=== PATIENT | female | born 1980 | race Caucasian/White ===

== ENCOUNTER 2019-11-07 07:26 | Outpatient (CLI) | payer OTHER, SELFPAY ==
[2019-11-07 09:02] LABS: Cortisol Baseline 7.91 ug/dL
== END 2019-11-07 07:27 | disposition home or self-care (01) ==
PROVIDERS: Visit Provider Internal Medicine Endocrinology, Diabetes & Metabolism
DX: R94.7 Abnormal results of other endocrine function studies (principal)
CPT/HCPCS: 36415; 82533; 96372; J0834

== ENCOUNTER 2020-02-02 10:49 | Outpatient (CLI) | payer OTHER, SELFPAY ==
--- NOTE | ~2020-02-02 | XR_ITS ---
EXAMINATION: XR chest 2V EXAM DATE: 02/02/2020 11:06 INDICATION: Cough, wheezing, shortness of breath. TECHNIQUE: Frontal and lateral projections of the chest obtained and reviewed. Comparison is made to prior examination from 10/27/2007. FINDINGS: The lungs are clear. There are no pleural effusions. The cardiomediastinal silhouette is within normal limits. There is no pneumothorax suspected. The bones and soft tissues are unremarkab le. IMPRESSION: Normal chest x-ray exam. Reviewed, dictated and finalized at location A. IMPRESSION: Normal chest x-ray exam.
== END 2020-02-02 10:50 | disposition home or self-care (01) ==
LOC: ANHIMG 10:54
PROVIDERS: PCP Physician Assistant; Visit Provider Physician Assistant
DX: R05 Cough (principal)
CPT/HCPCS: 71046

== ENCOUNTER 2020-06-28 06:50 | Outpatient (NON) | payer OTHER, SELFPAY ==
[2020-06-28 21:44] LABS: SARS-CoV-2 RNA PCR Negative
== END 2020-06-28 06:51 ==
LOC: ANHCOVIDDT 06:52
PROVIDERS: PCP Physician Assistant; Visit Provider Physician Assistant
DX: R53.83 Other fatigue (principal); Z20.822 Contact with and (suspected) exposure to COVID-19
CPT/HCPCS: C9803; U0003; U0005

== ENCOUNTER → 2020-06-29 12:34 | Outpatient (CLI) | payer OTHER, SELFPAY ==
--- NOTE | ~2020-06-29 | MR_ITS ---
EXAMINATION: MR shoulder LT w con DATE: 06/29/2020 14:19 INDICATION: Chronic left shoulder pain TECHNIQUE: Magnetic resonance imaging (MRI) of the left shoulder was performed following intra-artic ular gadolinium contrast injection and without intravenous contrast. Details of the glenohumeral join t injection have been dictated separately. Sequences included axial T2-weighted FS FSE, axial T1-andrés ghted FS FSE, coronal oblique T1-weighted FS FSE, coronal oblique T2-weighted FSE, sagittal T2-weight ed FS FSE, sagittal T1-weighted FSE, and ABER (abduction external rotation) T1-weighted FS FSE. COMPARISON: None. FINDINGS: Coracoacromial arch: The acromion undersurface is curved in morphology (type II). The coracoacromial ligament is normal. Acromioclavicular joint is normal. Rotator cuff: Mild supraspinatus and infraspinatus tendinopathy without discrete tear. The teres minor and subscapu johnny tendons are normal. Normal rotator cuff muscle bulk and signal. Biceps tendon, glenoid labrum and glenohumeral cartilage: Long head of the biceps tendon is normal. There is a small partial-thickness tear at the base of the 12:00-10:00 position of the posterior superior glenoid labrum. There is partial thickness cartilage l oss with smooth chondral surface at the posterior superior glenoid. Humeral head cartilage appears no rmal. Bones and other: Normal marrow signal with no edema, fracture or abnormal marrow replacing process. No abnormal fluid signal in the subacromial/subdeltoid bursa to suggest bursitis. Small amount of nonenhancing fluid i n the deltoid muscle anterior to the rotator cuff interval likely related to subcutaneous lidocaine i njection. There is an extra-articular extravasation of contrast at the axillary recess which is consi stent on the initial arthrographic images with adequate distention of the axillary recess. The extrav asation seen only posteriorly with an intact anterior inferior glenohumeral ligament. The posterior i nferior glenohumeral ligament and capsule are seen is thin curvilinear lines with no discrete defect in these findings would all be most consistent with iatrogenic extravasation rather than a glenohumer al ligament tear. IMPRESSION: 1. Mild supraspinatus and infraspinatus tendinopathy without discrete tear. 2. Partial-thickness SLAP tear at the base of the posterosuperior glenoid labrum. Reviewed, dictated and finalized at location A. D LIFE THERAPIST IMPRESSION: 1. Mild supraspinatus and infraspinatus tendinopathy without discrete tear. 2. Partial-thickness SLAP tear at the base of the posterosuperior glenoid labru m.
--- NOTE | ~2020-06-29 | XR_ITS ---
EXAMINATION: XR fl inj shoulder LT - MR/CT DATE: 06/29/2020 13:57 INDICATION: Chronic left shoulder pain. No surgery or dislocation. TECHNIQUE: A time-out was performed to verify the patient's name, date of , and procedure to b e performed. The procedure including the risks, benefits, and alternatives was discussed with the pat ient. Risks discussed included bleeding and infection. The patient understood the risks and agreed to proceed. The skin overlying the left glenohumeral joint was prepped and draped in usual sterile fash ion. Anesthetic was administered with 1% lidocaine subcutaneously. A 22 G needle was advanced under fluoroscopic guidance into the joint. Subsequently, injectate consisting of 12 mL of 1:200 Multihan ce, 1:4 1% lidocaine, and 1:4 Omnipaque 240 was instilled. The needle was removed and the entry site was cleaned and dressed. There were no immediate complications. Fluoroscopy exposure time was 0.0 m inutes. The total number of images was 3. FINDINGS: Real-time fluoroscopy demonstrates the needle and contrast in the left glenohumeral joint. IMPRESSION: 1. Successful left glenohumeral joint injection of contrast for subsequent MR arthrography. Reviewed, dictated and finalized at location B. P MANAGER IMPRESSION: 1. Successful left glenohumeral joint injection of contrast for subsequent MR a rthrography.
== END ==
PROVIDERS: PCP Physician Assistant
DX: S43.432A Superior glenoid labrum lesion of left shoulder, initial encounter (principal); X58.XXXA Exposure to other specified factors, initial encounter
CPT/HCPCS: 23350; 73222; A9577; Q9966

== ENCOUNTER → 2020-12-25 13:42 | Outpatient (CLI) | payer OTHER, SELFPAY ==
--- NOTE | ~2020-12-25 | MM_ITS ---
EXAMINATION: MM scrn laureen implant BI w alejandra HISTORY: Screening mammogram TECHNIQUE: Craniocaudal and mediolateral oblique 3-D tomosynthesis images with implant displacement a nd synthetic 2-D images were generated. Craniocaudal and mediolateral oblique views of the breasts wi thout implant displacement were obtained using full field digital mammography. CAD analysis was submi tted and interpreted. COMPARISON: 05/03/2018 BREAST PARENCHYMAL COMPOSITION: The breasts are heterogenously dense, which may obscure small masses. FINDINGS: There are subpectoral silicone implants. There is no evidence of suspicious mass, calcifica tion, or architectural distortion to suggest malignancy in either breast. There has been no suspiciou s interval change. IMPRESSION: 1. No mammographic evidence of malignancy. 2. Recommend routine screening mammography in one year. BI-RADS Category 1: Negative Reviewed, dictated and finalized at location A.
== END ==
PROVIDERS: PCP Physician Assistant; Visit Provider Physician Assistant
DX: Z12.31 Encounter for screening mammogram for malignant neoplasm of breast (principal)
CPT/HCPCS: 77063; 77067

== ENCOUNTER 2021-05-14 09:44 | Outpatient (CLI) | payer OTHER, SELFPAY | END 2021-05-14 09:45 | disposition home or self-care (01) | LOC: CHSOUTPT 09:46 | PROVIDERS: PCP Physician Assistant; Visit Provider Specialist | DX: D22.72 Melanocytic nevi of left lower limb, including hip (principal) | CPT/HCPCS: 88305; 88342 ==

== ENCOUNTER → 2021-07-17 08:38 | Outpatient (CLI) | payer OTHER, SELFPAY ==
--- NOTE | ~2021-07-17 | MR_ITS ---
EXAMINATION: MR lower leg LT wo/w con DATE: 07/17/2021 09:50 INDICATION: Nodular skin of the lower limb TECHNIQUE: Magnetic resonance imaging (MRI) of the left lower leg was performed without intravenous c ontrast. A marker was placed over the region of concern. Sequences included axial, sagittal and veronica nal T1-weighted FSE, sagittal and coronal fluid sensitive FSE STIR, axial T2-weighted FS FSE, axial T 1-weighted FS FSE and postcontrast axial, sagittal and coronal T1-weighted FS FSE. COMPARISON: None. FINDINGS: There is mild epimysial edema along the caudal aspect of the medial head of the left gastrocnemius mu scle. There is focal mild thickening with increased signal and mild enhancement of the intramuscular portion of the right proximal Achilles tendon consistent with very small partial tear. Otherwise symm etric muscle bulk and signal throughout both calves. Normal bone marrow signal throughout with no idris ctive edema or periostitis, fracture or pathologic marrow replacing process. No abnormal masses or di screte fluid collections identified. No other abnormally enhancing lesions identified. IMPRESSION: 1. Very small partial tear at the myotendinous junction of the proximal Achilles tendon in the distal medial head of the gastrocnemius. Reviewed, dictated and finalized at location A. RVISOR SPRING UP IMPRESSION: 1. Very small partial tear at the myotendinous junction of the proximal John Day s tendon in the distal medial head of the gastrocnemius.
[2021-07-17 09:03] LABS: Estimated Glomerular Filt Rate > 60
== END ==
PROVIDERS: PCP Physician Assistant; Visit Provider Physician Assistant
DX: R22.42 Localized swelling, mass and lump, left lower limb (principal)
CPT/HCPCS: 73720; A9577

== ENCOUNTER 2021-12-06 02:24 | Day surgery (SDC) | payer OTHER, SELFPAY ==
[2021-12-02 11:47] VITALS: BMI 22.8
--- NOTE | 2021-12-02 11:48 | PC.NURSE ---
Report to the Outpatient Waiting Room, entrance under the green pavilion located off [facility], at time _0815_ on date _[id number]_. OR Time: _1015_. - You and your visitor will be asked a series of questions to screen for COVID 19 for your protection. - Only one visitor is allowed at this time. - The patient visitor is requested to leave or wait in car when not with patient. - A mask is required within the hospital. Patients may have clear liquids (water, carbonated beverages, clear teas, apple juice) until 3 hours prior to surgery with a maximum of 20 ounces. - No food from midnight until time of surgery Take the following medications with a SIP of water the morning of surgery: __Bupropion and Levothyroxine Medications to discontinue per physician ____None Date to take last dose Please no make-up, nail luxembourgish, hairspray, perfume, deodorant, or body powder the day of surgery. No jewelry (including any body piercings) or valuables the day of surgery, leave them at home. Please take a shower or bath the night before, or the morning of, surgery with an antibacterial soap. Wear comfortable, loose fitting clothing. - Jewelry must be removed prior to entering the operating room. Rings and piercings that are not removed may be cut off. - The hospital will not accept responsibility for valuables. - Please leave all valuables, including medications, at home the day of surgery. If you are going home after surgery, a licensed double bottom driver must drive you home. - NO public transportation without another adult. - We recommend that an adult stay with you for 24 hours following discharge. - We also recommend that you do not drive, make important decision, drink alcoholic beverages, or take any drugs that were not prescribed by your health care provider for at least 24 hours after your discharge time. Follow any additional instructions given to you from your surgeon. If you or anyone in your household have experienced Covid symptoms in the past week, please notify your surgeon or the nurse liaison at the phone number below for possible testing. Telephone instructions given to ___Patient___and asked if any additional questions and then verbalized understanding. Patient advised to call surgeon office or pre surgery nurse liaison [phone] if any additional questions.
--- NOTE | 2021-12-04 07:12 | PM.IMHP ---
H&P: HPI History of Present Illness Date/Time: 12/04/21 07:12 Chief Complaint: Irregular bleeding with suspected polyp Narrative: Is a 41-year-old female who is admitted for hysteroscopy and dilatation and curettage secondary to bleeding and suspected polyp. The patient's bleeding has been intermenstrual. Ultrasound shows a possible polyp were abnormality in the uterus. Risks and benefits of the procedure reviewed including but not exclusive of , aspiration pneumonia, bleeding, transfusion, perforation injury to bowel, bladder, ureters, or other internal organs with need for open laparotomy. She received the ACOG handout entitled hysteroscopy and dilatation curettage respectively. She had all questions answered and asked to proceed PMF Family History Family History Father Hypertension Other Family history of cardiovascular disease Social History Social History Smoking status: Never smoker Second hand tobacco smoke exposure: No Alcohol intake: current Living arrangements: with family Spiritual care concerns: No Meds Home Medications and Allergies Home Medications Medication Instructions Recorded Confirmed Type bupropion HCl 150 mg 24 hr tablet, 150 mg PO DAILY 12/02/21 12/02/21 History extended release bupropion HCl 300 mg 24 hr tablet, 300 mg PO DAILY 12/02/21 12/02/21 History extended release fluoxetine 10 mg tablet 10 mg PO HS 12/02/21 12/02/21 History fluoxetine 20 mg tablet 20 mg PO HS 12/02/21 12/02/21 History levothyroxine 125 mcg tablet 125 mcg PO DAILY 12/02/21 12/02/21 History (Synthroid) liraglutide (weight loss) 3 mg/0.5 9 mg subcut DAILY 12/02/21 12/02/21 History mL (18 mg/3 mL) subcut pen injector (Saxenda) magnesium 250 mg tablet 250 mg PO DAILY 12/02/21 12/02/21 History progesterone micronized 100 mg 2 cap PO DAILY 12/02/21 12/02/21 History capsule Allergies Allergy/AdvReac Type Severity Reaction Status Date / Time No Known Allergies Allergy Verified 12/02/21 11:35 Assessment and Plan Assessment and plan (1) Excessive vaginal bleeding: Code(s): N93.9 - Abnormal uterine and vaginal bleeding, unspecified Status: Acute Plan Hysteroscopy/dilatation curettage/probable polypectomy
--- NOTE | 2021-12-06 06:43 | WPDHPUPDATE1 ---
History and Physical Update Update Date/Time: 12/06/21 06:43 History and Physical has been reviewed, including an updated exam of the patient. There are NO changes in the patient's condition. Risks, benefits, and alternatives have been discussed and questions answered. Patient agrees to proceed with procedure.
[2021-12-06] MEDS: ACETAMINOPHEN 500 MG TABLET 1000 MG PO (08:42)
--- NOTE | 2021-12-06 09:11 | P.PNAN_ITS ---
Anes - Initial Pre Proc Eval Procedure: Operation Date: 12/06/21 10:15 Proposed Procedures p Hysteroscopy, Dilation and Curettage with Polypectomy - William Good MD Date/Time: 12/06/21 09:11 Surgeon: William Good MD Pre Op Diagnosis: uterine polyp, irreg bleeding Patient Data Age: 41 Gender: F Height: 1.73 m Weight: 67.4 kg Allergies Allergy/AdvReac Type Severity Reaction Status Date / Time No Known Allergies Allergy Verified 12/06/21 08:32 Home Medications Medication Instructions Recorded Confirmed Type bupropion HCl 150 mg 24 hr tablet, 150 mg PO DAILY 12/02/21 12/06/21 History extended release bupropion HCl 300 mg 24 hr tablet, 300 mg PO DAILY 12/02/21 12/06/21 History extended release fluoxetine 10 mg tablet 10 mg PO HS 12/02/21 12/06/21 History fluoxetine 20 mg tablet 20 mg PO HS 12/02/21 12/06/21 History levothyroxine 125 mcg tablet 125 mcg PO DAILY 12/02/21 12/06/21 History (Synthroid) liraglutide (weight loss) 3 mg/0.5 9 mg subcut DAILY 12/02/21 12/06/21 History mL (18 mg/3 mL) subcut pen injector (Saxenda) magnesium 250 mg tablet 250 mg PO DAILY 12/02/21 12/06/21 History progesterone micronized 100 mg 2 cap PO DAILY 12/02/21 12/02/21 History capsule hydrocodone 5 mg-acetaminophen 325 1 tablet PO Q4H PRN pain #20 tabs 12/06/21 Rx mg tablet spironolactone 50 mg tablet 50 mg PO HS 12/06/21 12/06/21 History Patient hx anesthesia problems: none Family hx anesthesia problems: none Results Review: All pre-operative results and documents have been reviewed as part of the pre-operative evaluation. [facility] Past Medical History Medical History (Updated 12/06/21 @ 09:14 by William Chance MD) Anxiety Surgical History Surgical History (Updated 12/06/21 @ 09:14 by William Chance MD) H/O thyroidectomy History of section History of shoulder surgery Family History Family History Father Hypertension Other Family history of cardiovascular disease Social History Social History Smoking status: Never smoker Second hand tobacco smoke exposure: No Alcohol intake: current Living arrangements: with family Spiritual care concerns: No Anes - Eval Final PreProcedure Day of Procedure 12/06/21 09:11 Patient weight: normal Heart: regular rate and rhythm Lungs: clear to auscultation Airway: Mallampati scale class 1 Neurological: alert and oriented Last oral intake: >/= 8 hours ASA classification: II Emergent: no Anesthetic plan: proceed Anesthesia type and monitoring: general GIVS and standard monitoring Results Review: All pre-operative results and documents have been reviewed as part of the pre- operative evaluation. Informed Consent: The patient's anesthetic plan and its attendant risks and benefits were discussed with the patient/family/POA. Questions were solicited and answers provided to the satisfaction of the patient/family/POA.
[2021-12-06 09:24] VITALS: BP 92/61; PULSE 86; RESP 16; TEMP 36.6; O2SAT 100
[2021-12-06] MEDS: LACTATED RINGERS 1,000 ML 30 ML IV CONT (09:25)
--- NOTE | 2021-12-06 10:16 | W.PM.PROC2 ---
Procedure Note - Detailed Date of Procedure 12/06/21 Pre-op Diagnosis uterine polyp, irreg bleeding Post-op Diagnosis Same Procedure Performed Hysteroscopy/dilatation curettage Surgeon William Good MD Anesthesia MAC and Local Indications Is a 41-year-old female with breakthrough bleeding and suspected polyp Findings Thick irregular endometrial tissue. Some clots were seen in the uterus no evidence of a polyp was present Description of Procedure Patient was prepped draped in the normal sterile fashion placed in the dorsal lithotomy position. Under excellent IV sedation weighted speculum was placed in posterior fornix vagina. Anterior lip of the cervix grasped with a single-tooth tenaculum. 2.5cc 1% xylocaine anesthesia placed at 2, 4, 8, 10:00 a.m. of the cervix. Uterus sounded to 9cm. Serial dilatation with fragmented dilators performed followed by passes the 5mm visualizing hysteroscope using normal saline as visualizing medium. There were some clots that were present which explain what appeared to be a polyp on ultrasound. No other abnormalities were seen. The uterus was scraped over the entire 360? until a good grating sound was heard. The instruments were withdrawn. The patient went to recovery in satisfactory condition. All sponge, needle, instrument counts were correct. There were no immediate complications Estimated Blood Loss 5 Drains No Packing No Pathology Yes Complications No immediate complications Condition Stable Disposition PACU
[2021-12-06 10:21] VITALS: BP 106/70; PULSE 81; RESP 16; O2SAT 99
[2021-12-06 10:50] VITALS: BP 110/79; PULSE 73; RESP 16
[2021-12-06 11:20] VITALS: BP 111/77; PULSE 69; RESP 16
== END 2021-12-06 11:40 | disposition home or self-care (01) ==
PROVIDERS: PCP Physician Assistant; Visit Provider Obstetrics & Gynecology
PROC: 0U5B8ZZ Destruction of Endometrium, Via Natural or Artificial Opening Endoscopic (ICD-10-PCS; CPT 58563; principal; 2021-12-06 10:15)
DX: N93.9 Abnormal uterine and vaginal bleeding, unspecified (principal); F41.9 Anxiety disorder, unspecified; E89.0 Postprocedural hypothyroidism
CPT/HCPCS: 58558; 88305; A9270; J2250; J2704; J3010; J7030; J7120

== ENCOUNTER → 2022-01-17 10:02 | Outpatient (CLI) | payer OTHER, SELFPAY ==
--- NOTE | ~2022-01-17 | MM_ITS ---
EXAMINATION: MM scrn laureen implant BI w alejandra HISTORY: Screening mammogram TECHNIQUE: Craniocaudal and mediolateral oblique 3-D tomosynthesis images with implant displacement a nd synthetic 2-D images were generated. Craniocaudal and mediolateral oblique views of the breasts wi thout implant displacement were obtained using full field digital mammography. CAD analysis was submi tted and interpreted. COMPARISON: 12/25/2020, 05/03/2018 BREAST PARENCHYMAL COMPOSITION: The breasts are heterogeneously dense, which may obscure small masses . FINDINGS: There is no evidence of suspicious mass, calcification, or architectural distortion to sugg est malignancy in either breast. There has been no suspicious interval change. IMPRESSION: 1. No mammographic evidence of malignancy. 2. Recommend routine screening mammography in one year. BI-RADS Category 1: Negative Reviewed, dictated and finalized at location A.
== END ==
PROVIDERS: PCP Physician Assistant; Visit Provider Obstetrics & Gynecology
DX: Z12.31 Encounter for screening mammogram for malignant neoplasm of breast (principal)
CPT/HCPCS: 77063; 77067

== ENCOUNTER → 2022-01-30 10:09 | Outpatient (CLI) | payer OTHER, SELFPAY ==
--- NOTE | ~2022-01-30 | XR_ITS ---
EXAMINATION: XR chest 2V 01/30/2022 10:20 INDICATION: Right-sided chest pain PROCEDURE: 2 view chest COMPARISON: Comparison to multiple prior studies sequentially, with oldest reviewed study dated 10/26. FINDINGS: The lungs are clear. The cardiomediastinal silhouette is within normal limits. There are no pleural effusions. There is no pneumothorax suspected. IMPRESSION: 1: NO ACUTE CARDIOPULMONARY DISEASE. Reviewed, dictated and finalized at location A.
== END ==
PROVIDERS: PCP Physician Assistant; Visit Provider Physician Assistant
DX: R07.89 Other chest pain (principal)
CPT/HCPCS: 71046

== ENCOUNTER 2022-07-22 15:51 | Outpatient (CLI) | payer OTHER, SELFPAY ==
--- NOTE | ~2022-07-22 | CT_ITS ---
EXAMINATION: CT brain wo con DATE: 07/22/2022 16:08 INDICATION: Head injury. TECHNIQUE: Computed tomography (CT) of the head was performed without intravenous contrast. The mA wa s adjusted according to patient size. Iterative reconstruction technique was employed. The dose-lengt h product was 605.33 mGy-cm. COMPARISON: None FINDINGS: There is no intracranial hemorrhage, acute infarction, or abnormal intracranial mass lesion . The ventricles are normal in size. The orbits are normal. There is mucosal thickening in the parana ruddy sinuses. The mastoid air cells are normal. IMPRESSION: 1. Normal brain. Reviewed, dictated and finalized at location A. 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 Normal brain.
== END 2022-07-22 15:52 | disposition home or self-care (01) ==
PROVIDERS: PCP Physician Assistant; Visit Provider Physician Assistant
DX: S09.90XD Unspecified injury of head, subsequent encounter (principal); X58.XXXD Exposure to other specified factors, subsequent encounter
CPT/HCPCS: 70450

== ENCOUNTER 2022-10-22 09:33 | Outpatient (CLI) | payer OTHER, SELFPAY ==
--- NOTE | ~2022-10-22 | XR_ITS ---
XR knee LT min 4V 10/22/2022 09:51 INDICATION: Left knee pain PROCEDURE: 4 views left knee COMPARISON: . No prior studies for comparison. FINDINGS: Fracture, dislocation or subluxation is not identified. No significant joint effusion. The soft tissues appear within normal limits. No foreign bodies are identified. IMPRESSION: 1: NO ACUTE BONE OR JOINT ABNORMALITY IDENTIFIED. Reviewed, dictated and finalized at location B.
== END 2022-10-22 09:34 | disposition home or self-care (01) ==
LOC: ANHIMG 09:37
PROVIDERS: PCP Physician Assistant; Visit Provider Physician Assistant
DX: M25.562 Pain in left knee (principal); M23.8X9 Other internal derangements of unspecified knee
CPT/HCPCS: 73564

== ENCOUNTER 2022-10-29 09:35 | Outpatient (CLI) | payer OTHER, SELFPAY ==
--- NOTE | ~2022-10-29 | MR_ITS ---
EXAMINATION: MR knee LT wo con DATE: 10/29/2022 11:12 INDICATION: OTHER INTERNAL DERANGEMANTS OF KNEE TECHNIQUE: Magnetic resonance imaging (MRI) of the left knee was performed without intravenous contra st. Sequences included axial PD-weighted FS FSE, coronal PD-weighted FSE and PD-weighted FS FSE, sagi ttal PD-weighted FSE, and sagittal T2-weighted FS FSE. COMPARISON: X-ray left knee 10/22/2022. FINDINGS: Medial compartment: Meniscus intact. Mild diffuse cartilage thinning minimal osteophytosis. Lateral compartment: Intact meniscus. Intact cartilage. Minimal osteophytosis. Patellofemoral compartment: Minimal partial-thickness cartilage signal abnormality on the medial facet. Intact retinacula. Minima l enthesopathy and osteophytosis. Ligaments and tendons: Focal discontinuity of the anterior band of the ACL, near its origin, without significant thickening or edematous changes. Mild thickening of the proximal and mid MCL. The LCL and PCL are intact. The re maining flexor and extensor tendons are intact . Fluid: Moderate volume joint fluid Osseous/other: No suspicious focal or diffuse marrow signal. IMPRESSION: 1. 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 2. Mild chronic partial MCL tear. 3. Moderate joint effusion. 4. Mild tricompartmental degenerative changes. Reviewed, dictated and finalized at location K. IMPRESSION: 1. Chronic partial tear of the ACL, involving the anterior band, near its origi n. 2. Mild chronic partial MCL tear. 3. Moderate joint effusion. 4. Mild tricompartmental degenerative changes.
== END 2022-10-29 09:36 | disposition home or self-care (01) ==
PROVIDERS: PCP Physician Assistant; Visit Provider Physician Assistant
DX: M25.462 Effusion, left knee (principal); M17.12 Unilateral primary osteoarthritis, left knee
CPT/HCPCS: 73721

== ENCOUNTER → 2023-03-17 09:02 | Outpatient (CLI) | payer OTHER, SELFPAY ==
--- NOTE | ~2023-03-17 | XR_ITS ---
EXAMINATION: XR chest 2V 03/17/2023 09:15 INDICATION: Wheezing PROCEDURE: 2 view chest COMPARISON: 01/30/2022 FINDINGS: The lungs are clear. There is mild hyperinflation. The cardiomediastinal silhouette is with in normal limits. There are no pleural effusions. There is no pneumothorax suspected. IMPRESSION: 1: NO ACUTE CARDIOPULMONARY DISEASE. Reviewed, dictated and finalized at location L.
== END ==
PROVIDERS: PCP Physician Assistant; Visit Provider Physician Assistant
DX: R06.2 Wheezing (principal)
CPT/HCPCS: 71046

== ENCOUNTER → 2023-05-15 11:23 | Outpatient (CLI) | payer OTHER, SELFPAY ==
--- NOTE | ~2023-05-15 | CT_ITS ---
Clinical Indication: Cough CT Scan of the Chest with Contrast: Technique: Contiguous sections were acquired throughout the chest after intravenous administration of 75 cc of Omnipaque 350. Dose reduction technique was used on this scan by utilizing automated exposu re control and iterative reconstruction technique. The dose-length product (DLP) was 155.70 mGy-cm. Findings: There is no evidence of any significant mediastinal, hilar or axillary lymphadenopathy. There is no f illing defect in the pulmonary arterial tree to suggest pulmonary embolus. There is no evidence of ao rtic dissection or aneurysm. There is no evidence of pleural or pericardial effusion. The lungs are clear. No pulmonary nodules or infiltrates are noted. Images through the upper abdomen reveal no abnormalities. Impression: No evidence of pulmonary embolus, aortic dissection, or aortic aneurysm. Clear lungs. Reviewed, dictated and finalized at [facility]. [employer] Impression: No evidence of pulmonary embolus, aortic dissection, or aortic aneurysm. Clear lungs.
== END ==
PROVIDERS: PCP Physician Assistant; Visit Provider Physician Assistant
DX: R05.3 Chronic cough (principal)
CPT/HCPCS: 71260; Q9967

== ENCOUNTER 2023-05-20 10:50 | Outpatient (CLI) | payer OTHER, SELFPAY | END 2023-05-20 10:51 | disposition home or self-care (01) | LOC: ANHAUDASC 10:51 | PROVIDERS: PCP Physician Assistant; Visit Provider Otolaryngology | DX: H90.11 Conductive hearing loss, unilateral, right ear, with unrestricted hearing on the contralateral side (principal); H74.09 Tympanosclerosis, unspecified ear; H72.92 Unspecified perforation of tympanic membrane, left ear; H69.90 Unspecified Eustachian tube disorder, unspecified ear; J31.0 Chronic rhinitis | CPT/HCPCS: 92557; 92567 ==

== ENCOUNTER 2024-08-23 14:22 | Outpatient (CLI) | payer OTHER, SELFPAY ==
--- NOTE | ~2024-08-23 | XR_ITS ---
XR_[id number]_CR Ordering provider: Nedra Browning, KAYLAN History: . Radiculopathy, cervical region . Comparison: None. FINDINGS: VERTEBRAL BODIES: Normal height and alignment. No visible fracture or subluxation. The dens is intact . DISK SPACES: Well maintained. PARASPINOUS SOFT TISSUES: No prevertebral soft tissue swelling. IMPRESSION: No acute osseous abnormality cervical spine. Reviewed, dictated and finalized at location A.
--- NOTE | ~2024-08-23 | XR_ITS ---
HISTORY: Pain in right foot COMPARISON: None TECHNIQUE: 2 views of the right foot were performed FINDINGS: No acute fracture or dislocation is appreciated. No significant degenerative disease is noted. The base of the fifth metatarsal is intact. No calcaneal spur is noted. No significant soft tissue swelling is present. IMPRESSION: Unremarkable radiographic evaluation of the right foot, as detailed above. Reviewed, dictated and finalized at location A. IMPRESSION: Unremarkable radiographic evaluation of the right foot, as detaile d above.
--- NOTE | ~2024-08-23 | XR_ITS ---
HISTORY: Pain in left foot COMPARISON: None TECHNIQUE: 2 views of the left foot were performed FINDINGS: No acute fracture or dislocation is appreciated. No significant degenerative disease is noted. The base of the fifth metatarsal is intact. No calcaneal spur is noted. No significant soft tissue swelling is present. IMPRESSION: Unremarkable radiographic evaluation of the left foot, as detailed above. Reviewed, dictated and finalized at location A.
== END 2024-08-23 14:23 | disposition home or self-care (01) ==
LOC: MICIMG 14:24
PROVIDERS: PCP Physician Assistant; Visit Provider Physician Assistant
DX: M54.12 Radiculopathy, cervical region (principal); M79.671 Pain in right foot; M79.672 Pain in left foot
CPT/HCPCS: 99199; 72040; 73620

== ENCOUNTER 2024-10-18 08:59 | Outpatient (CLI) | payer OTHER, SELFPAY ==
--- NOTE | 2024-10-18 | EST_ITS ---
Patient Info Name: Vita Latif Age: 44 years : 1980 Gender: Female Ht: 69 in Wt: 150 lbs BSA: 1.82 m2 HR: 79 bpm BP: 104 / 68 mmHg Exam Date: 10/18/2024 9:02 AM Patient Status: unknown Admit Date: 10/18/2024 Exam Type: CA stress test treadmill Study Info Indications Other forms of dyspnea - A treadmill exercise stress test was performed. Staff Attending Provider: Nedra Browning Exercise Technologist: Yi Bates Exercise Physician: Reyes Hoang DO Summary 1. 1. Negative Kristian exercise stress test for ischemic ST changes by ECG criteria. 2. 2. Good functional capacity, achieving 10 METs of workload. 3. 3. Appropriate HR response to exercise. 4. 4. Appropriate HR recovery at 1 minute post exercise. 5. 5. No imaging with stress testing. 6. 6. Patient informed of the above results. Protocol: Kristian Stress ECG Details Stage: REST Duration (min): 1 min : 24 sec Speed (mph): 0.0 Grade (%): 0 HR (bpm): 77 SBP (mmHg): 104 DBP (mmHg): 68 METS: --- Stage: REST Duration (min): 3 min : 22 sec Speed (mph): 0.0 Grade (%): 0 HR (bpm): 93 SBP (mmHg): 104 DBP (mmHg): 68 METS: --- Stage: STAGE 1 Duration (min): 1 min : 0 sec Speed (mph): 1.7 Grade (%): 10 HR (bpm): 107 SBP (mmHg): 104 DBP (mmHg): 68 METS: --- Stage: STAGE 1 Duration (min): 2 min : 0 sec Speed (mph): 1.7 Grade (%): 10 HR (bpm): 113 SBP (mmHg): 104 DBP (mmHg): 68 METS: --- Stage: STAGE 1 Duration (min): 3 min : 0 sec Speed (mph): 1.7 Grade (%): 10 HR (bpm): 116 SBP (mmHg): 98 DBP (mmHg): 55 METS: --- Stage: STAGE 2 Duration (min): 1 min : 0 sec Speed (mph): 2.5 Grade (%): 12 HR (bpm): 127 SBP (mmHg): 98 DBP (mmHg): 55 METS: --- Stage: STAGE 2 Duration (min): 2 min : 0 sec Speed (mph): 2.5 Grade (%): 12 HR (bpm): 136 SBP (mmHg): 103 DBP (mmHg): 53 METS: --- Stage: STAGE 2 Duration (min): 3 min : 0 sec Speed (mph): 2.5 Grade (%): 12 HR (bpm): 140 SBP (mmHg): 103 DBP (mmHg): 53 METS: --- Stage: STAGE 3 Duration (min): 1 min : 0 sec Speed (mph): 3.4 Grade (%): 14 HR (bpm): 146 SBP (mmHg): 113 DBP (mmHg): 57 METS: --- Stage: STAGE 3 Duration (min): 2 min : 0 sec Speed (mph): 3.4 Grade (%): 14 HR (bpm): 151 SBP (mmHg): 113 DBP (mmHg): 57 METS: --- Stage: STAGE 3 Duration (min): 2 min : 31 sec Speed (mph): 3.4 Grade (%): 14 HR (bpm): 154 SBP (mmHg): 130 DBP (mmHg): 59 METS: --- Stage: RECOVERY Duration (min): 0 min : 28 sec Speed (mph): 0.0 Grade (%): 0 HR (bpm): 150 SBP (mmHg): 130 DBP (mmHg): 59 METS: --- Stage: RECOVERY Duration (min): 1 min : 28 sec Speed (mph): 0.0 Grade (%): 0 HR (bpm): 133 SBP (mmHg): 130 DBP (mmHg): 59 METS: --- Stage: RECOVERY Duration (min): 2 min : 28 sec Speed (mph): 0.0 Grade (%): 0 HR (bpm): 116 SBP (mmHg): 130 DBP (mmHg): 59 METS: --- Stage: RECOVERY Duration (min): 3 min : 12 sec Speed (mph): 0.0 Grade (%): 0 HR (bpm): 115 SBP (mmHg): 128 DBP (mmHg): 57 METS: --- Rest HR: 93 bpm Peak HR: 154 bpm Rest Sys BP: 104 mmHg Peak Sys BP: 130 mmHg Max Pred HR: 177 bpm % Max Pred HR: 87 % Target HR: 150 bpm Max RPP: 20,020 bpm*mmHg Sethi Score: 6 Termination Reason: Reached target heart rate or workload Cardiac Symptoms: Shortness of breath Max ST Seg Deviation: 0.60 mm Total Time: 8 min : 31 sec Rest Levy BP: 68 mmHg Peak Levy BP: 59 mmHg Angina Score: None Total METS: 10.3 Resting ECG Sinus rhythm. Stress ECG No ST changes. Arrhythmias None. Report Signatures
--- OUTSIDE RECORDS SUMMARY | 2024-10-18 09:07 | XMS_ITS | Encounter Summary ---
Author Organization [facility] Healthcare Address [address] [place] [address] Care Team Providers Care Bullet Swaging Machine Operator Name Role Phone Nedra Browning Primary Care Pr ovider Montrell Shaw MD Unavailable [phone] Reason for Visit * Diagnostic Imaging (Routine) - Closed Specialty Diagnoses / Procedures Referred By Sterling mijares Referred To Contact Procedures Breast Imaging Diagnostic Outside Reference Lucien Odell NP Phone: tel: fax: Referral ID Status Reason Start Date Expiration Date Visits Re quested Visits Authorized [id number] Closed 05/21/2022 06/20/2023 1 1 Encounter Details Date Type Department Care Team (Late st Contact Info) Description 05/03/2018 Hospital Encounter [facility] [address] [place] [address] [phone] Social History Tobacco Use Types Packs/Day Years [...] on file Legal Sex 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 Gender Identity Female 12/22/2019 6:41 AM CDT Sexual Orientation Not on file documented as of this encounter Functional Status * Audit-C Score Answer Date of Assessment Author 3 09/20/2024 10:06 AM DAGMART Delmi Barrett CMA * Question Answer Date of Assessment Author Q1: [...] Monthly 09/20/2024 10:06 AM Sukh Stuart CMA documented as of this encounter Plan of Treatment Not on file documented as of this encounter Procedures Procedure Name Priority Date/Time Associated Diagnosis Comments BREAST IMAGING MG DIAGNOSTIC OUTSIDE REFERENCE Routine 05/03/2018 12:00 AM FIELD ATTENDANT documented in this encounter Results * Breast Imaging Diagnostic Outside Reference (05/03/2018 12:00 AM FIELD ATTENDANT) Impressions [facility]_M[facility]MO[facility] - 05/21/2022 11:43 AM FIELD ATTENDANT These images are for Reference purposes only and have not been reviewed by [facility] Radiology. There will be no report generated by a [facility] Radiologist. Narrative RAD_MAMMO[facility] - 05/21/2022 11:43 AM FIELD ATTENDANT EXAMINATION: Images For Reference Purposes Only us [...] documented as of this encounter Care Teams Bullet Swaging Machine Operator Relationship Specialty Start Date End Date Nedra Browning PA PCP - General Physician Burnisher And Bumper 01/22/18 12/21/19 Montrell Shaw MD [address] [place] [id number] 01/22/18 12/21/19 documented as of this encounter
--- OUTSIDE RECORDS SUMMARY | 2024-10-18 09:07 | XMS_ITS | Clinical Summary ---
Author Organization [facility] Address [address] [place] [address] Care Team Providers Care Tail Ripper Name Role Phone Yamel García MD Unavailable [phone] Nedra Agosto Primary Care Pr ovider Source Comments [facility],non-owned Affiliates and Associated Physician Practices is amultiple site organization consisting of ambulatory clinics and hospital sitesin [place], [place], [place] and [place]. This disclosure is being madepursuant to the Care Everywhere program and may not contain all information available regarding this patient. Last updated 18.[facility] Allergies No known active allergies Medications * Be aware that medications may not be up to date on this document. Alwaysverify current medications with the patient. Calcium Carb-Cholecalcife rol (CALCIUM 1000 + D) 1000-800 MG-UNIT Active [place]-3 Fatty Acids (FISH OIL) 1000 MG capsule Acti ve Magnesium 100 MG Act emily Vit-Fe Fumarate-FA ( VITAMINS) 28-0.8 MG TABS 1 tablet once daily Active buPROPion XL 24hr (WELLBUTRIN-XL) 300 MG tablet Take 1 tablet by mouth once daily 8 Active albuterol HFA (PROVENTIL;VENTOL IN;PROAIR) 108 (90 Base) MCG/ACT inhaler Inhale 2 puffs by mouth 0 Active vitamin D, ergocalciferol, (DRISDOL) 1.25 MG (47655 UT) capsule 8 Active FLUoxetine (PROZAC) 20 MG capsule 0 Active levothyroxine (SYNTHROID) 125 MCG tablet Take 1 tablet by mouth once daily 8 Active liothyronine (CYTOMEL) 5 MCG tablet TK 1 T PO BID ATC 0 Active SAXENDA 18 MG/3ML 1 Active metFORMIN ER 24hr (GLUCOPHAGE XR) 500 MG tablet TK 1 T PO BID B MEALS 0 Active phentermine (IONAMINE) 15 MG capsule 0 Active spironolactone (ALDACTONE) 50 MG tablet TK 1 T PO BID 0 Active Cyanocobalamin (B-12 COMPLIANCE INJECTION IJ) by Injection route every 7 days Active silver sulfADIAZINE (SILVADENE) 1 % cream Apply to affected area 2 times daily 50 g 1 Active ketoconazole (NIZORAL) 2 % cream Apply to affected area 2 times daily 15 g 1 Active oxyCODONE-acetami nophen (PERCOCET) 10-325 MG tablet Take 1 (one) tablet by mouth every 6 hours as needed for Pain 28 tablet 1 Active Progesterone 100 MG capsule TAKE 1 TO 2 CAPSULES BY MOUTH AT BEDTIME 1 Active Active Problems Problem Noted Date Diagnosed Date Peripheral tear of medial me niscus of left knee as current injury 02/10/2023 SCC (squamous cell carcinoma), foot, right 01/25 Thyrotoxicosis with thyrotoxic crisis 12/20/2013 Overview (03/06/2020): THYROTOX NOS NO CRISIS Hypothyroidism 10/22/2013 Overview (03/06/2020): HYPOTHYROIDISM NOS Pure hypercholesterolemia 10/22/2013 Overview (03/06/2020): PURE HYPERCHOLESTEROLEM Social History Tobacco Use Types Packs/Day Years Used Date Smoking Tobacco: Never Smokeless Tobacco: Never Alcohol Use Standard Drinks/Week Comments Yes 0 (1 standard drink = 0.6 oz pur e alcohol) socially Comments No Sex and Gender Information Value Date Recorded Sex Assigned at Not on file 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 Gender Identity Not on file Sexual Orientation Not on file Last Filed Vital Signs Vital Sign Reading Time Taken Comments Blood Pressure 103/71 08/30/2020 12:10 PM CDT Pulse 88 08/30/2020 12:10 PM CDT Temperature 36.3 C (97.3 F) 08/30/2020 10:32 AM CDT Respiratory Rate 20 08/30/2020 12:10 PM CDT Oxygen Saturation 93% 08/30/2020 12:10 PM CDT Inhaled Oxygen Concentration - - Weight 72.6 kg (160 lb) 02/18/2021 8:53 AM CDT Height 175.3 cm (5' 9 ) 02/18/2021 8:53 AM CDT Body Mass Index 23.63 02/18/2021 8:53 AM CDT Plan of Treatment Health Maintenance Due Date Last Done Comments LIPID TESTING 1980 MAMMOGRAM 1980 PAP SMEAR 1980 HIV SCREENING 01/02/1996 HEPATITIS C SCREENING 12/28/1998 DTAP/TDAP/TD VACCINES (1 - Tdap) 01/02/2000 HEPATITIS B VACCINE (1 of 3 - 19+ 3-dose series) 01/02/2000 COVID-19 VACCINE (2 - 2023-2 5 season) 2024 05/10/2021 DEPRESSION SCREENING 06/08/2024 INFLUENZA VACCINE (Season Ended) 2025 04/19/2020, 05/10/2019, 02/28/2017 ZOSTER VACCINE (1 of 2) 2031 HIB VACCINE Aged Out No longer eligi ble based on patient's age to complete this topic HPV VACCINE Aged Out No longer eligi ble based on patient's age to complete this topic MENINGOCOCCAL (Group B) VACCINE SHARED DECISION-MAKING Aged Out No longer eligible based on patient's age to complete this topic MENINGOCOCCAL GROUPS A/C/Y/W VACCINE Aged Out No longer eligible b ased on patient's age to complete this topic PNEUMOCOCCAL VACCINE Aged Out No long er eligible based on patient's age to complete this topic Medical Devices Implanted Type Area Creel Hand Device Identifier Shelf Expiration Date Model / Serial / Lot [employer] Sut Arthx Fbrtak Strl Lf Disp Implanted:Qty: 2 on 08/30/2020 by Yamel García MD at [facility] Left: Shoulder [employer] 07/08/2025 AR-[id number] / / [id number] Fibertak Biceps Implant Set Implanted:Qty: 1 on 08/30/2020 by Yamel García MD at [facility] Left: Shoulder 07/08/2025 AR-3670 / / [id number] Explanted Type Area Creel Hand Device Identifier Shelf Expiration Date Model / Serial / Lot Kit Arthsc Fx Crv Spr Disp Explanted:Qty: 1 on 08/30/2020 at [facility] Left: Shoulder [employer] [id number] / / Insurance HE[employer]LINK HE[employer]LINK Care Teams Tail Ripper Relationship Specialty Start Date End Date Nedra Agosto PA [address] [place] [address] PCP - General 12/17/21 [place]ía [place] [id number] [place] [address] Orthopedic Surgery 08/14/20
--- OUTSIDE RECORDS SUMMARY | 2024-10-18 09:07 | XMS_ITS | Referral Summary ---
Author Organization [email or web address] Address [address] [place] [address] Care Team Providers Care Iv Therapy Nurse Name Role Phone Nedra Browning Unavailable Nedra Browning Primary Care Pr ovider Encounters Date Type Department Care Team Description 09/20/2024 11:00 AM CDT - 09/20/2024 11:59 PM CDT Hospital Encounter [facility] - Breast Imaging [address] [place] [address] 8 [place] [address] Mastodynia Discharge Disposition: Discharge to home or self care 09/20/2024 10:23 AM CDT - 09/20/2024 11:59 PM CDT Hospital Encounter [facility] - Breast Imaging [address] [place] [address] 8 [place] [address] Mastodynia Discharge Disposition: Discharge to home or self care 09/20/2024 10:00 AM CDT Office Visit [facility] Surgery [address] [place] [phone] Melly Santamaria NP Mass of right breast, unspecified quadrant (Primary Dx); Discharge from right nipple; At high risk for breast cancer; Family history of breast cancer; Dense breast tissue 09/14/2024 Orders Only [facility] Surgery [address] [place] [address] 8 [place] [address] Janet Osborn CMA Mastodynia (Primary Dx) from Last 3 Months Allergies No known active allergies Medications buPROPion XL (WELLBUTRIN XL) 300 mg 24 hr tablet Take 1 tablet (300 mg total) by mouth daily 8 Active SYNTHROID 125 mcg tablet Take 1 tablet (125 mcg total) by mouth daily 8 Active MAGNESIUM ORAL Take by mouth. Active ferrous sulfate (IRON ORAL) Take by mouth Acti ve ergocalciferol (VITAMIN D) 50,000 unit capsule 8 Active FLUoxetine (PROzac) 20 mg capsule 0 Active spironolactone (ALDACTONE) 50 mg tablet Take 1 tablet (50 mg total) by mouth daily Active Accrufer 30 mg capsule TAKE 1 CAPSULE BY MOUTH TWICE A DAY 1 HOUR BEFORE OR 2 HOURS AFTER MEALS. 4 Active progesterone (PROMETRIUM) 100 mg capsule 4 Active tirzepatide (Mounjaro) 7.5 mg/0.5 mL pen injector Active tretinoin (RETIN-A) 0.025 % cream 4 Active minoxidiL (LONITEN) 10 mg tabletIndication s:hypertension Take 1 tablet (10 mg total) by mouth daily Active Vyvanse 30 mg capsule 1 capsule (30 mg total) 5 Active vit-iron fum-folic ac 27 mg iron- 0.8 mg tablet 1 tablet daily. 09/21/19 25 Discontin ued(Patie nt Reported) CALCIUM ORAL Take by mouth. 09/21/19 25 Discontin ued(Patie nt Reported) docosahexanoic acid/epa (FISH OIL ORAL) Take by mouth. 09/21/19 25 Discontin ued(Patie nt Reported) albuterol HFA (PROVENTIL HFA,VENTOLIN HFA,PROAIR HFA) 90 mcg/actuation inhalerIndicatio ns:Viral upper respiratory tract infection Inhale 2 puffs every 6 (six) hours as needed for wheezing 1 Inhaler 0 09/21/19 25 Discontin ued(Patie nt Reported) budesonide-formo teroL (SYMBICORT) 160-4.5 mcg/actuation inhaler Inhale 2 puffs 2 (two) times a day 09/21/19 25 Discontin ued(Patie nt Reported) cefdinir (OMNICEF) 300 mg capsule TK 1 C PO Q 12 H 09/21/19 25 Discontin ued(Patie nt Reported) ciprofloxacin (Cipro) 500 mg tablet Take 1 tablet every 12 hours by oral route. 09/21/19 25 Discontin ued(Patie nt Reported) doxycycline (doxycycline hyclate) 100 mg capsule TK 1 C PO BID FOR 7 DAYS 09/21/19 25 Discontin ued(Patie nt Reported) clobetasoL (TEMOVATE) 0.05 % cream APPLY A SMALL AMOUNT AA BID 09/21/19 25 Discontin ued(Patie nt Reported) ketoconazole (NIZORAL) 2 % cream Apply topically 2 (two) times a day 1 09/21/19 25 Discontin ued(Patie nt Reported) liothyronine (CYTOMEL) 5 mcg tablet TK 1 T PO BID ATC 0 09/21/19 25 Discontin ued(Patie nt Reported) liraglutide, weight loss, (Saxenda) 3 mg/0.5 mL (18 mg/3 mL) pen injector 1 09/21/19 25 Discontin ued(Patie nt Reported) metFORMIN XR (GLUCOPHAGE XR) 500 mg 24 hr tablet TK 1 T PO BID B MEALS 0 09/21/19 25 Discontin ued(Patie nt Reported) oxyCODONE-acetam inophen (PERCOCET) 10-325 mg per tablet Take 1 tablet by mouth every 6 (six) hours as needed 1 09/21/19 25 Discontin ued(Patie nt Reported) phentermine 15 mg capsule 0 09/21/19 25 Discontin ued(Patie nt Reported) phentermine 37.5 mg capsule 09/21/19 25 Discontin ued(Patie nt Reported) predniSONE (DELTASONE) 10 mg tablet 09/21/19 25 Discontin ued(Patie nt Reported) predniSONE (DELTASONE) 20 mg tablet 3 tabs po daily x 2 days, then 2 tabs po daily x 2 days, then 1 tab po daily x 2 days, then 1/2 tab po daily x 2 days 09/21/19 25 Discontin ued(Patie nt Reported) silver sulfadiazine (SILVADENE, SSD) 1 % cream Apply topically 2 (two) times a day 1 09/21/19 25 Discontin ued(Patie nt Reported) sulfamethoxazole -trimethoprim (BACTRIM DS) 800-160 mg per tablet TK 1 T PO BID FOR 7 DAYS 09/21/19 25 Discontin ued(Patie nt Reported) triamcinolone (KENALOG) 0.5 % cream APPLY A THIN LAYER TO THE AFFECTED AREA(S) of neck BY TOPICAL ROUTE 2 TIMES PER DAY 09/21/19 25 Discontin ued(Patie nt Reported) Active Problems Problem Noted Date Diagnosed Date Persistent cough 05/07/2023 Reactive airway disease 03/20/2023 Wheezing 03/16/2023 Peripheral tear of medial me niscus of left knee as current injury 02/10/2023 Derangement of left knee 11/12/2022 Arthralgia of left knee 09/30/2022 Knee joint laxity 09/30/2022 Closed injury of head 07/21/2022 Headache 07/21/2022 Right lower quadrant pain 07/21/2022 Low back pain 05/11/2022 Acute urinary tract infection 03/24/2022 Right-sided chest pain 01/29/2022 Vitamin B12 deficiency (non anemic) 09/05/2021 Nodule of skin of lower extremity 07/07/2021 Pain of left calf 07/07/2021 Anxiety 07/04/2018 SCC (squamous cell carcinoma), foot, right - Rig ht 01/25/2018 Thyrotoxicosis with thyrotoxic crisis 12/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 Overview (09/11/2016): THYROTOX NOS NO CRISIS Pure hypercholesterolemia 10/22/2013 Overview (09/12/2016): PURE HYPERCHOLESTEROLEM Hypothyroidism 10/22/2013 Overview (09/12/2016): HYPOTHYROIDISM NOS Immunizations Immunization Administration Dates Next Due Influenza, Quadrivalent, Split, Intramuscular Influenza, Quadrivalent, Spl it, Preservative Free, Intramuscular 04/19/2020,05/10/2019 Influenza, Trivalent, Preservative Free, Intramu scular 03/03/2017 Influenza, Unspecified 03/23/2023 Moderna SARS-CoV-2 Monovalent Vaccination (12+ Y RS) 05/10/2021 Social History Tobacco Use Types Packs/Day Years [...] on file 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 Gender Identity Female 12/22/2019 6:41 AM CDT Sexual Orientation Not on file Last Filed Vital Signs Vital Sign Reading Time Taken Comments Blood Pressure 112/66 10/14/2023 3:47 PM CDT Pulse 72 10/14/2023 3:47 PM CDT Temperature 36.7 C (98.1 F) 10/14/2023 3:47 PM CDT Respiratory Rate 16 10/14/2023 3:47 PM CDT Oxygen Saturation 98% 10/14/2023 3:47 PM CDT Inhaled Oxygen Concentration - - Weight 67.6 kg (149 lb) 09/20/2024 10:00 AM CDT Height 175.3 cm (5' 9 ) 09/20/2024 10:00 AM CDT Body Mass Index 22 09/20/2024 10:00 AM CDT Plan of Treatment Not on file Procedures Procedure Name Priority Date/Time Associated Diagnosis Comments US BREAST RIGHT LIMITED Schedule Routine, Read Routine (OP Routine) 09/20/2024 12:09 PM CDT Mastodynia DIAGNOSTIC MAMMOGRAM RIGHT W RIO W IMPLANTS Schedule Routine, Read Routine (OP Routine) 09/20/2024 11:28 AM CDT Mastodynia from Last 3 Months Results * US Breast Right Limited (09/20/2024 12:09 PM CDT) Anatomical Region Laterality Modality Breast Right Ultrasound 09/20/2024 1:19 PM CDT Impressions 09/20/2024 1:19 PM CDT 1. Benign changes of right retroareolar breast at mammography and ultrasound. Mild duct ectasia is seen, with no intraductal mass. 2. Negative mammography and ultrasound of right 3:00 tender region. OVERALL FINAL ASSESSMENT: BI-RADS Category 2: Benign. RECOMMENDATION: 1. Annual screening mammography is recommended. 2. Clinical follow-up is recommended. Depending on clinical level of concern, repeat repeat breast MR can be done for continued nipple discharge, along with dense breast tissue. Electronically signed by: Rosalina Bah MD Narrative 09/20/2024 1:19 PM CDT EXAMINATION: RIGHT UNILATERAL DIGITAL DIAGNOSTIC MAMMOGRAM AND DIGITAL BREAST TOMOSYNTHESIS; RIGHT BREAST SONOGRAM HISTORY: Right clear nipple discharge for several years, along with right 3:00 area of pain. On clinical exam at breast surgery clinic today, no palpable lump was felt. Outside MR [facility] on 08/25/2023 was reported to be negative COMPARISON: Outside mammogram 03/21/2024, 03/19/2023, 01/17/2022; outside MR 08/25/2023 TECHNIQUE: Full field digital mammographic views of right breast were performed, including computer aided detection (CAD) and digital breast tomosynthesis (DBT). Directed ultrasound evaluation of right breast was performed. BREAST PARENCHYMAL COMPOSITION: The breasts are heterogeneously dense, which may obscure small masses. MAMMOGRAM FINDINGS: There is no new suspicious abnormality in the RIGHT breast. Specifically no focal abnormality is seen within the dense breast tissue in the right retroareolar breast or in the right 3:00 area of pain. Subpectoral breast implant appears normal in contour. SONOGRAM FINDINGS: Ultrasound of right retroareolar region shows no focal mass, with mild duct ectasia. No intraductal mass is seen. Ultrasound of the right 3:00 tender area shows no focal mass. Mild duct ectasia noted, also with no intraductal mass seen. Procedure Note Rosalina Bah MD - 09/20/2024 EXAMINATION: RIGHT UNILATERAL DIGITAL DIAGNOSTIC MAMMOGRAM AND DIGITAL BREAST TOMOSYNTHESIS; RIGHT BREAST SONOGRAM HISTORY: Right clear nipple discharge for several years, along with right 3:00 area of pain. On clinical exam at breast surgery clinic today, no palpable lump was felt. Outside MR breast [facility] on 08/25/2023 was reported to be negative COMPARISON: Outside mammogram 03/21/2024, 03/19/2023, 01/17/2022; outside MR 08/25/2023 TECHNIQUE: Full field digital mammographic views of right breast were performed, including computer aided detection (CAD) and digital breast tomosynthesis (DBT). Directed ultrasound evaluation of right breast was performed. BREAST PARENCHYMAL COMPOSITION: The breasts are heterogeneously dense, which may obscure small masses. MAMMOGRAM FINDINGS: There is no new suspicious abnormality in the RIGHT breast. Specifically no focal abnormality is seen within the dense breast tissue in the right retroareolar breast or in the right 3:00 area of pain. Subpectoral breast implant appears normal in contour. SONOGRAM FINDINGS: Ultrasound of right retroareolar region shows no focal mass, with mild duct ectasia. No intraductal mass is seen. Ultrasound of the right 3:00 tender area shows no focal mass. Mild duct ectasia noted, also with no intraductal mass seen. IMPRESSION: 1. Benign changes of right retroareolar breast at mammography and ultrasound. Mild duct ectasia is seen, with no intraductal mass. 2. Negative mammography and ultrasound of right 3:00 tender region. OVERALL FINAL ASSESSMENT: BI-RADS Category 2: Benign. RECOMMENDATION: 1. Annual screening mammography is recommended. 2. Clinical follow-up is recommended. Depending on clinical level of concern, repeat repeat breast MR can be done for continued nipple discharge, along with dense breast tissue. Electronically signed by: Rosalina Bah MD Melly Santamaria NP IMG MAMMO PROCEDURES Final Result * Diagnostic Mammogram Right w [place] w Implants (09/20/2024 11:28 AM CDT) Anatomical Region Laterality Modality Breast Right Mammography 09/20/2024 1:19 PM CDT Impressions 09/20/2024 1:19 PM CDT 1. Benign changes of right retroareolar breast at mammography and ultrasound. Mild duct ectasia is seen, with no intraductal mass. 2. Negative mammography and ultrasound of right 3:00 tender region. OVERALL FINAL ASSESSMENT: BI-RADS Category 2: Benign. RECOMMENDATION: 1. Annual screening mammography is recommended. 2. Clinical follow-up is recommended. Depending on clinical level of concern, repeat repeat breast MR can be done for continued nipple discharge, along with dense breast tissue. Electronically signed by: Rosalina Bah MD Narrative 09/20/2024 1:19 PM CDT EXAMINATION: RIGHT UNILATERAL DIGITAL DIAGNOSTIC MAMMOGRAM AND DIGITAL BREAST TOMOSYNTHESIS; RIGHT BREAST SONOGRAM HISTORY: Right clear nipple discharge for several years, along with right 3:00 area of pain. On clinical exam at breast surgery clinic today, no palpable lump was felt. Outside [facility] on 08/25/2023 was reported to be negative COMPARISON: Outside mammogram 03/21/2024, 03/19/2023, 01/17/2022; outside MR 08/25/2023 TECHNIQUE: Full field digital mammographic views of right breast were performed, including computer aided detection (CAD) and digital breast tomosynthesis (DBT). Directed ultrasound evaluation of right breast was performed. BREAST PARENCHYMAL COMPOSITION: The breasts are heterogeneously dense, which may obscure small masses. MAMMOGRAM FINDINGS: There is no new suspicious abnormality in the RIGHT breast. Specifically no focal abnormality is seen within the dense breast tissue in the right retroareolar breast or in the right 3:00 area of pain. Subpectoral breast implant appears normal in contour. SONOGRAM FINDINGS: Ultrasound of right retroareolar region shows no focal mass, with mild duct ectasia. No intraductal mass is seen. Ultrasound of the right 3:00 tender area shows no focal mass. Mild duct ectasia noted, also with no intraductal mass seen. Procedure Note Rosalina Bah MD - 09/20/2024 EXAMINATION: RIGHT UNILATERAL DIGITAL DIAGNOSTIC MAMMOGRAM AND DIGITAL BREAST TOMOSYNTHESIS; RIGHT BREAST SONOGRAM HISTORY: Right clear nipple discharge for several years, along with right 3:00 area of pain. On clinical exam at breast surgery clinic today, no palpable lump was felt. Outside [facility] on 08/25/2023 was reported to be negative COMPARISON: Outside mammogram 03/21/2024, 03/19/2023, 01/17/2022; outside MR 08/25/2023 TECHNIQUE: Full field digital mammographic views of right breast were performed, including computer aided detection (CAD) and digital breast tomosynthesis (DBT). Directed ultrasound evaluation of right breast was performed. BREAST PARENCHYMAL COMPOSITION: The breasts are heterogeneously dense, which may obscure small masses. MAMMOGRAM FINDINGS: There is no new suspicious abnormality in the RIGHT breast. Specifically no focal abnormality is seen within the dense breast tissue in the right retroareolar breast or in the right 3:00 area of pain. Subpectoral breast implant appears normal in contour. SONOGRAM FINDINGS: Ultrasound of right retroareolar region shows no focal mass, with mild duct ectasia. No intraductal mass is seen. Ultrasound of the right 3:00 tender area shows no focal mass. Mild duct ectasia noted, also with no intraductal mass seen. IMPRESSION: 1. Benign changes of right retroareolar breast at mammography and ultrasound. Mild duct ectasia is seen, with no intraductal mass. 2. Negative mammography and ultrasound of right 3:00 tender region. OVERALL FINAL ASSESSMENT: BI-RADS Category 2: Benign. RECOMMENDATION: 1. Annual screening mammography is recommended. 2. Clinical follow-up is recommended. Depending on clinical level of concern, repeat repeat breast MR can be done for continued nipple discharge, along with dense breast tissue. Electronically signed by: Rosalina Bah MD Melly Santamaria NP IMG MAMMO PROCEDURES Final Result from Last 3 Months Insurance [employer] [facility] [id number] [facility] [id number] Care Teams Iv Therapy Nurse Relationship Specialty Start Date End Date Nedra Browning PA [address] [place] [address] PCP - General Physician Master At Arms 06/20/24 Nedra Browning PA Physician Master At Arms 12/22/19
--- OUTSIDE RECORDS SUMMARY | 2024-10-18 09:07 | XMS_ITS | Clinical Summary ---
Author Organization [facility] Address [address] [place] [address] Care Team Providers Care Land Reclamation Specialist Name Role Phone Nedra Browning Unavailable Nedra Browning Primary Care Pr ovider Allergies No known active allergies Medications buPROPion [...] HYPERCHOLESTEROLEM Hypothyroidism 10/22/2013 Overview (09/12/2016): HYPOTHYROIDISM NOS Encounters Date Type Department Care Team Description 09/20/2024 11:00 AM CDT - 09/20/2024 11:59 PM CDT Hospital Encounter [facility] - Breast Imaging [address] [place] [address] Mastodynia Discharge Disposition: Discharge to home or self care 09/20/2024 10:23 AM CDT - 09/20/2024 11:59 PM CDT Hospital Encounter [facility] - Breast Imaging [address] [place] [address] 8 [place] [address] Mastodynia Discharge Disposition: Discharge to home or self care 09/20/2024 10:00 AM CDT Office Visit [facility] Surgery [address] [place] [address] 8 [place] [address] Melly Santamaria NP Mass of right breast, unspecified quadrant (Primary Dx); Discharge from right nipple; At high risk for breast cancer; Family history of breast cancer; Dense breast tissue 09/14/2024 Orders Only [facility] Surgery [address] [place] [address] 8 [place] [phone] Janet Osborn CMA Mastodynia (Primary Dx) from Last 3 Months Immunizations Immunization Administration Dates Next Due Influenza, Quadrivalent, Split, Intramuscular Influenza, Quadrivalent, Spl it, Preservative Free, Intramuscular 04/19/2020,05/10/2019 Influenza, Trivalent, Preservative Free, Intramu scular 03/03/2017 Influenza, Unspecified 03/23/2023 Moderna SARS-CoV-2 Monovalent Vaccination (12+ Y RS) 05/10/2021 Surgical History Surgery Date Site/Laterality Comments THYROIDECTOMY 06/08/2010 - 06/07/2011 BREAST SURGERY agugmentation Medical History Medical History Date Comments Hx Other Medical preclampsia Disorder of thyroid Thyroid dise ase Hx Other Medical s/p thyroidecto my. 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 Gender Identity Female 12/22/2019 6:41 AM CDT Sexual Orientation Not on file Obstetrics History Last Filed Vital Signs Vital Sign Reading [...] 09/20/2024 10:00 AM CDT Plan of Treatment Health Maintenance Due Date Last Done Comments Cervical Cancer Screening 1981 Depression Screening 1981 Hepatitis C Screening 1981 DTaP/Tdap/Td Vaccine (1 - Tdap) 01/02/1992 Varicella Vaccines (1 of 2 - 13+ 2-dose series) 1994 Hepatitis B Screening 1999 Regular Well Visit/Exam 18-64 1999 Covid-19 Vaccine ( season) 2024 05/10/2021, 09/13/2020, 08/16/2020 Breast Cancer Screening-Mammogram 03/19/2024 03/19/2023, 03/19/2023, 01/17/2022, Additional history exists Influenza Vaccine (Season Ended) 2025 03/23/2023, 04/19/2020, 05/10/2019, Additional history exists HPV Vaccines Aged Out No longer eligi ble based on patient's age to complete this topic Pneumococcal vaccine <65 Aged Out No longer eligible based on patient's age to complete this topic Procedures Procedure Name Priority Date/Time Associated Diagnosis [...] today, no palpable lump was felt. Outside [facility] on 08/25/2023 was reported to be negative [...] today, no palpable lump was felt. Outside [facility] on 08/25/2023 was reported to be negative COMPARISON: Outside mammogram 03/21/2024, 03/19/2023, 01/17/2022; outside 08/25/2023 TECHNIQUE: Full field digital mammographic views [...] today, no palpable lump was felt. Outside [facility] on 08/25/2023 was reported to be negative [...] today, no palpable lump was felt. Outside [facility] on 08/25/2023 was reported to be negative [...] signed by: Rosalina Bah MD Melly Santamaria MANAGER INVENTORY IMG MAMMO PROCEDURES Final Result from Last 3 Months Insurance [employer] [facility] [id number] [facility] [id number] [address] [facility] [id number] Care Teams Land Reclamation Specialist Relationship Specialty Start Date End Date Nedra Browning PA [address] [place] [address] PCP - General Physician Installation And Service Technician 06/20/24 Nedra Browning PA Physician Installation And Service Technician 12/22/19
--- OUTSIDE RECORDS SUMMARY | 2024-10-18 09:07 | XMS_ITS | Encounter Summary ---
Author Organization [facility] Address [address] [place] [address] Care Team Providers Care Customer Supply Chain Analyst Name Role Phone Nedra Browning Primary Care Pr ovider Montrell Shaw MD Unavailable [phone] Reason for Visit * Diagnostic Imaging (Routine) - Closed Specialty Diagnoses / Procedures Referred By Sterling mijares Referred To Contact Procedures Breast Imaging US Outside Reference Lucien Odell NP Phone: tel: fax: Referral ID Status Reason Start Date Expiration Date Visits Re quested Visits Authorized [id number] Closed 05/21/2022 06/20/2023 1 1 Encounter Details Date Type Department Care Team (Late st Contact Info) Description 05/03/2018 12:05 AM 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 Monthly 09/20/2024 10:06 AM DAGMART Sukh Aburto CMA documented as of this encounter Plan of Treatment Not on file documented as of this encounter Procedures Procedure Name Priority Date/Time Associated Diagnosis Comments BREAST IMAGING US OUTSIDE REFERENCE Routine 05/03/2018 12:05 AM HIDES AND SKINS COLORER documented in this encounter Results * Breast Imaging US Outside Reference (05/03/2018 12:05 AM HIDES AND SKINS COLORER) Impressions RAD_MAMMO[facility] - 05/21/2022 11:43 AM HIDES AND SKINS COLORER These images are for Reference purposes only and have not been reviewed by [facility] Radiology. There will be no report generated by a [facility] Radiologist. Narrative [facility]_MAMMO[facility] - 05/21/2022 11:43 AM HIDES AND SKINS COLORER EXAMINATION: Images For Reference Purposes Only us [...] documented as of this encounter Care Teams Customer Supply Chain Analyst Relationship Specialty Start Date End Date Nedra Browning PA PCP - General Physician Finisher Tailor Apprentice 01/22/18 12/21/19 Montrell Shaw MD [address] [place] [id number] 01/22/18 12/21/19 documented as of this encounter
--- OUTSIDE RECORDS SUMMARY | 2024-10-18 09:07 | XMS_ITS | Data Portability ---
Author Organization [facility] [employer], Main Office Address [address] [place] [address] Assessment No assessment recorded. Plan of Treatment Reminders Order Date Submit Date Provider Last Modified By Organization Details Last Modified Time Details Appointments None recorded. Lab None recorded. Referral None recorded. Procedures None recorded. Surgeries None recorded. Imaging XR, knee 2022 023 [facility], 2022 Jose Miguel Mcma[address], [address], [place], [address], 3 08:48:37 MRI, knee, w/o contrast - no auth required ref#[id number] 2022 023 [facility], 2022 Jose Miguel Mcma[address], [address], [place], [address], 3 10:34:21 Medication Orders albuterol sulfate HFA 90 mcg/actuat ion aerosol inhaler 2022 023 [id number], [address] [place], [id number], 3 15:23:09 Symbicort 160 mcg-4.5 mcg/actuat ion HFA aerosol inhaler 2022 023 [employer] [id number], [address], [place], [id number], 3 15:23:09 Patient TargetsNo targets recorded. Patient InstructionsNo instructions recorded. Reason for Referral None Reported. Results Created Date Observation Date Name Description Value Unit Range Abnormal Flag Note LastModifiedBy Organization Detail LastModifiedTime 09/14/19 22 09/14/2021 VITAM IN B12/F OLATE , SERUM PANEL vitamin B12 1849 pg/mL 200-11 00 high Not Available [address], [address], 09/14/2021 13:14:16 09/14/19 22 09/14/2021 VITAM IN B12/F OLATE , SERUM PANEL folate, serum 16.7 NG/mL normal Refer ence Range Low: <3.4 Borde rline : 3.4-5 .4 Karma l: >5.4 Not Available [address], [address], 09/14/2021 13:14:16 09/14/19 22 09/14/2021 REFLE XIVE URINE CULTU RE reflexive urine culture NO CULTU RE INDIC ATED Not Available [address], [address], 09/14/2021 13:14:16 09/14/19 22 09/14/2021 URINA LYSIS , COMPL ETE W/REF MICKIE TO CULTU RE color yellow yellow normal Not Available [address], [address], 09/14/2021 13:14:16 09/14/19 22 09/14/2021 URINA LYSIS , COMPL ETE W/REF MICKIE TO CULTU RE appearance clear clear normal Not Available [address], [address], 09/14/2021 13:14:16 09/14/19 22 09/14/2021 URINA LYSIS , COMPL ETE W/REF MICKIE TO CULTU RE specific gravity 1.013 1.001- 1.035 normal Not Available [address], [address], 09/14/2021 13:14:16 09/14/19 22 09/14/2021 URINA LYSIS , COMPL ETE W/REF MICKIE TO CULTU RE pH 7.5 5.0-8. 0 normal Not Available [address], [address], 09/14/2021 13:14:16 09/14/19 22 09/14/2021 URINA LYSIS , COMPL ETE W/REF MICKIE TO CULTU RE glucose negati ve negati ve normal Not Available [facility] [address], [address], 09/14/2021 13:14:16 09/14/19 22 09/14/2021 URINA LYSIS , COMPL ETE W/REF MICKIE TO CULTU RE bilirubin negati ve negati ve normal Not Available [facility] [address], [address], 09/14/2021 13:14:16 09/14/19 22 09/14/2021 URINA LYSIS , COMPL ETE W/REF MICKIE TO CULTU RE ketones negati ve negati ve normal Not Available [facility] [address], [address], 09/14/2021 13:14:16 09/14/19 22 09/14/2021 URINA LYSIS , COMPL ETE W/REF MICKIE TO CULTU RE occult blood trace negati ve abnormal Not Available [facility] [address], [address], 09/14/2021 13:14:16 09/14/19 22 09/14/2021 URINA LYSIS , COMPL ETE W/REF MICKIE TO CULTU RE protein negati ve negati ve normal Not Available [facility] [address], [address], 09/14/2021 13:14:16 09/14/19 22 09/14/2021 URINA LYSIS , COMPL ETE W/REF MICKIE TO CULTU RE nitrite negati ve negati ve normal Not Available [facility] [place] [address] [place], [address], 09/14/2021 13:14:16 09/14/19 22 09/14/2021 URINA LYSIS , COMPL ETE W/REF MICKIE TO CULTU RE leukocyte esterase negati ve negati ve normal Not Available [address], [address], 09/14/2021 13:14:16 09/14/19 22 09/14/2021 URINA LYSIS , COMPL ETE W/REF MICKIE TO CULTU RE WBC none seen /hpf < or = 5 normal Not Available [address], [address], 09/14/2021 13:14:16 09/14/19 22 09/14/2021 URINA LYSIS , COMPL ETE W/REF MICKIE TO CULTU RE RBC none seen /hpf < or = 2 normal Not Available [address], [place], [address], 09/14/2021 13:14:16 09/14/19 22 09/14/2021 URINA LYSIS , COMPL ETE W/REF MICKIE TO CULTU RE squamous epithelial cells 0-5 /hpf < or = 5 Not Available [address], [address], 09/14/2021 13:14:16 09/14/19 22 09/14/2021 URINA LYSIS , COMPL ETE W/REF MICKIE TO CULTU RE bacteria few /hpf none seen abnormal Not Available [address], [address], 09/14/2021 13:14:16 09/14/19 22 09/14/2021 URINA LYSIS , COMPL ETE W/REF MICKIE TO CULTU RE hyaline cast none seen /lpf none seen normal Not Available [address], [address], 09/14/2021 13:14:16 09/14/19 22 09/14/2021 CBC (INCL UDES DIFF/ PLT) white blood cell count 3.7 thous and/u L 3.8-10 .8 low Not Available [address], [address], 09/14/2021 13:14:15 09/14/19 22 09/14/2021 CBC (INCL UDES DIFF/ PLT) red blood cell count 4.23 farheen on/uL 3.80-5 .10 normal Not Available [address], [address], 09/14/2021 13:14:15 09/14/19 22 09/14/2021 CBC (INCL UDES DIFF/ PLT) MCH 29.6 pg 27.0-3 3.0 normal Not Available [address], [address], 09/14/2021 13:14:15 09/14/19 22 09/14/2021 CBC (INCL UDES DIFF/ PLT) hemoglobin 12.5 g/dL 11.7-1 5.5 normal Not Available [address], [address], 09/14/2021 13:14:15 09/14/19 22 09/14/2021 CBC (INCL UDES DIFF/ PLT) hematocrit 38.7 % 35.0-4 5.0 normal Not Available [address], [address], 09/14/2021 13:14:15 09/14/19 22 09/14/2021 CBC (INCL UDES DIFF/ PLT) MCV 91.5 fL 80.0-1 00.0 normal Not Available [address], [address], 09/14/2021 13:14:15 09/14/19 22 09/14/2021 CBC (INCL UDES DIFF/ PLT) MCHC 32.3 g/dL 32.0-3 6.0 normal Not Available [address], [address], 09/14/2021 13:14:15 09/14/19 22 09/14/2021 CBC (INCL UDES DIFF/ PLT) RDW 11.5 % 11.0-1 5.0 normal Not Available [address], [address], 09/14/2021 13:14:15 09/14/19 22 09/14/2021 CBC (INCL UDES DIFF/ PLT) platelet count 253 thous and/u L 140-40 0 normal Not Available [address], [address], 09/14/2021 13:14:15 09/14/19 22 09/14/2021 CBC (INCL UDES DIFF/ PLT) MPV 11.2 fL 7.5-12 .5 normal Not Available [address], [address], 09/14/2021 13:14:15 09/14/19 22 09/14/2021 CBC (INCL UDES DIFF/ PLT) absolute neutrophils 1661 cells /uL 1500-7 800 normal Not Available [address], [address], 09/14/2021 13:14:15 09/14/19 22 09/14/2021 CBC (INCL UDES DIFF/ PLT) absolute lymphocytes 1373 cells /uL 850-39 00 normal Not Available [address], [address], 09/14/2021 13:14:15 09/14/19 22 09/14/2021 CBC (INCL UDES DIFF/ PLT) absolute monocytes 444 cells /uL 200-95 0 normal Not Available [address], [address], 09/14/2021 13:14:15 09/14/19 22 09/14/2021 CBC (INCL UDES DIFF/ PLT) absolute eosinophils 163 cells /uL 15-500 normal Not Available [facility] [address], [address], 09/14/2021 13:14:15 09/14/19 22 09/14/2021 CBC (INCL UDES DIFF/ PLT) absolute basophils 59 cells /uL 0-200 normal Not Available [facility] [address], [address], 09/14/2021 13:14:15 09/14/19 22 09/14/2021 CBC (INCL UDES DIFF/ PLT) neutrophils 44.9 % normal Not Available [facility] [address], [address], 09/14/2021 13:14:15 09/14/19 22 09/14/2021 CBC (INCL UDES DIFF/ PLT) lymphocytes 37.1 % normal Not Available [facility] [address], [address], 09/14/2021 13:14:15 09/14/19 22 09/14/2021 CBC (INCL UDES DIFF/ PLT) monocytes 12.0 % normal Not Available [facility] [address], [address], 09/14/2021 13:14:15 09/14/19 22 09/14/2021 CBC (INCL UDES DIFF/ PLT) eosinophils 4.4 % normal Not Available [facility] [address], [address], 09/14/2021 13:14:15 09/14/19 22 09/14/2021 CBC (INCL UDES DIFF/ PLT) basophils 1.6 % normal Not Available [facility] [address], [address], 09/14/2021 13:14:15 09/14/19 22 09/14/2021 T3, FREE T3, free 3.1 pg/mL 2.3-4. 2 normal Not Available [facility] [address] [place] [address], [address], 09/14/2021 13:14:14 09/14/19 22 09/14/2021 HEMOG LOBIN A1C hemoglobin A1C 4.7 %_of_ total _HGB <5.7 normal For the purpo se of screjoselyn liaog for the prese nce of diabe yani: <5.7% Consi stent with the absen ce of diabe yani 5.7-6 .4% Consi stent with incre ased risk for diabe yani (pred iabet es) > or =6.5% Consi stent with diabe yani This assay resul t is consi stent with a decre ased risk of diabe yani. Curre ntly, no conse nsus exist s jeannie johnson use of hemog lobin A1c for diagn osis of diabe yani in child greg. Accor ding to Ameri can Diabe yani Assoc iatio n (ADA) guide lines , hemog lobin A1c <7.0% repre sents optim al contr ol in non-p regna nt diabe tic patie nts. Diffe rent metri cs may apply to speci fic patie nt popul ation s. Stand ards of Medic al Care in Diabe yani(A DA). Not Available [facility] [address] [address] [place], [address], 09/14/2021 13:14:14 09/14/19 22 09/14/2021 COMPR EHENS JOSE METAB OLIC PANEL glucose 70 mg/dL 65-99 normal Fasti ng refer ence inter niki Not Available [facility] [address] [place], [address], 09/14/2021 13:14:13 09/14/19 22 09/14/2021 COMPR EHENS JOSE METAB OLIC PANEL urea nitrogen (BUN) 8 mg/dL 7-25 normal Not Available [address], [address], 09/14/2021 13:14:13 09/14/19 22 09/14/2021 COMPR EHENS JOSE METAB OLIC PANEL creatinine 0.89 mg/dL 0.50-1 .10 normal Not Available [address], [address], 09/14/2021 13:14:13 09/14/19 22 09/14/2021 COMPR EHENS JOSE METAB OLIC PANEL eGFR non-afr. gabonese 81 mL/mi n/1.7 3m2 > or = 60 normal Not Available [address], [address], 09/14/2021 13:14:13 09/14/19 22 09/14/2021 COMPR EHENS JOES METAB OLIC PANEL eGFR 94 mL/mi n/1.7 3m2 > or = 60 normal Not Available [address], [address], 09/14/2021 13:14:13 09/14/19 22 09/14/2021 COMPR EHENS JOES METAB OLIC PANEL BUN/creatini ne ratio not applic able (calc ) 6-22 Not Available [address], [address], 09/14/2021 13:14:13 09/14/19 22 09/14/2021 COMPR EHENS JOSE METAB OLIC PANEL sodium 138 mmol/ L 135-14 6 normal Not Available [address], [address], 09/14/2021 13:14:13 09/14/19 22 09/14/2021 COMPR EHENS JOSE METAB OLIC PANEL potassium 4.1 mmol/ L 3.5-5. 3 normal Not Available [address], [address], 09/14/2021 13:14:13 09/14/19 22 09/14/2021 COMPR EHENS JOSE METAB OLIC PANEL chloride 103 mmol/ L 98-110 normal Not Available [address], [address], 09/14/2021 13:14:13 09/14/19 22 09/14/2021 COMPR EHENS JOSE METAB OLIC PANEL carbon dioxide 28 mmol/ L 20-32 normal Not Available [address], [address], 09/14/2021 13:14:13 09/14/19 22 09/14/2021 COMPR EHENS JOSE METAB OLIC PANEL calcium 9.2 mg/dL 8.6-10 .2 normal Not Available [address], [address], 09/14/2021 13:14:13 09/14/19 22 09/14/2021 COMPR EHENS JOSE METAB OLIC PANEL protein, total 6.9 g/dL 6.1-8. 1 normal Not Available [address], [address], 09/14/2021 13:14:13 09/14/19 22 09/14/2021 COMPR EHENS JOSE METAB OLIC PANEL albumin 4.6 g/dL 3.6-5. 1 normal Not Available [address], [address], 09/14/2021 13:14:13 09/14/19 22 09/14/2021 COMPR EHENS JOSE METAB OLIC PANEL globulin 2.3 g/dL_ (calc ) 1.9-3. 7 normal Not Available [address], [address], 09/14/2021 13:14:13 09/14/19 22 09/14/2021 COMPR EHENS JOSE METAB OLIC PANEL albumin/glob ulin ratio 2.0 (calc ) 1.0-2. 5 normal Not Available [address], [address], 09/14/2021 13:14:13 09/14/19 22 09/14/2021 COMPR EHENS JOSE METAB OLIC PANEL bilirubin, total 0.5 mg/dL 0.2-1. 2 normal Not Available [address], [address], 09/14/2021 13:14:13 09/14/19 22 09/14/2021 COMPR EHENS JOSE METAB OLIC PANEL alkaline phosphatase 58 U/L 31-125 normal Not Available [address], [address], 09/14/2021 13:14:13 09/14/19 22 09/14/2021 COMPR EHENS JOSE METAB OLIC PANEL AST 16 U/L 10-30 normal Not Available [address], [address], 09/14/2021 13:14:13 09/14/19 22 09/14/2021 COMPR EHENS JOSE METAB OLIC PANEL ALT 13 U/L 6-29 normal Not Available [address], [address], 09/14/2021 13:14:13 09/14/19 22 09/14/2021 LIPID PANEL WITH RATIO S HDL cholesterol 50 mg/dL > or = 50 normal Not Available [address], [address], 09/14/2021 13:14:13 09/14/19 22 09/14/2021 LIPID PANEL WITH RATIO S cholesterol, total 167 mg/dL <200 normal Not Available [address], [address], 09/14/2021 13:14:13 09/14/19 22 09/14/2021 LIPID PANEL WITH RATIO S LDL/HDL ratio 2.0 (calc ) Below avera ge Risk: <2.34 [place] ge Risk: 2.35- 4.12 Moder ate Risk: 4.13- 5.56 High Risk: >5.57 Not Available [facility] [address] [place], [address], 09/14/2021 13:14:13 09/14/19 22 09/14/2021 LIPID PANEL WITH RATIO S triglyceride s 81 mg/dL <150 normal Not Available [facility] [address] [address] [place], [address], 09/14/2021 13:14:13 09/14/19 22 09/14/2021 LIPID PANEL WITH RATIO S LDL-choleste rol 100 mg/dL _(mary c) high Refer ence range : <100 Mamie able range <100 mg/dL for prima ry preve ntion ; <70 mg/dL for patie nts with CHD or diabe tic patie nts with > or = 2 CHD risk facto rs. LDL-C is now calcu lated using the Kellie lopez-Hop faustino paintingu karo n, which is a valid ated novel sharla rocha accur acy than the Fried ok equat ion in the estim ation of LDL-C . Kellie lopez SS et al. CHATO. 2013; 310(1 9): 2061- 2068 (http ://ed ucati on.Qu Sadie nelson tics. com/f aq/FA Q164) Not Available [facility] [address] [address], [place], [address], 09/14/2021 13:14:13 09/14/19 22 09/14/2021 LIPID PANEL WITH RATIO S chol/HDLC ratio 3.3 (calc ) <5.0 normal Not Available [facility] [address] [place], [address], 09/14/2021 13:14:13 09/14/19 22 09/14/2021 LIPID PANEL WITH RATIO S non HDL cholesterol 117 mg/dL _(mary c) <130 normal For patie nts with diabe yani plus 1 major ASCVD risk facto r, treat ing to a non-H DL-C goal of <100 mg/dL (LDL- C of <70 mg/dL ) is barbara kraft optio n. Not Available [address], [address], 09/14/2021 13:14:13 09/14/19 22 09/14/2021 TSH+F REE T4 TSH 1.70 mIU/L normal Refer ence Range > or = 20 Years 0.40- 4.50 Pregn citlaly Range s First trime ster 0.26- 2.66 Secon d trime ster 0.55- 2.73 Third trime ster 0.43- 2.91 Not Available [address], [address], 09/14/2021 13:14:12 09/14/19 22 09/14/2021 TSH+F REE T4 T4, free 1.3 NG/dL 0.8-1. 8 normal Not Available [address], [address], 09/14/2021 13:14:12 12/05/19 22 12/05/2021 TSH+F REE T4 T4, free 1.3 NG/dL 0.8-1. 8 normal Not Available [address], [address], 12/05/2021 05:45:56 12/05/19 22 12/05/2021 TSH+F REE T4 TSH 0.89 mIU/L normal Refer ence Range > or = 20 Years 0.40- 4.50 Pregn citlaly Range s First trime ster 0.26- 2.66 Secon d trime ster 0.55- 2.73 Third trime ster 0.43- 2.91 Not Available [employer] [address] [place], [address], 12/05/2021 05:45:56 12/05/19 22 12/05/2021 T3, FREE T3, free 2.9 pg/mL 2.3-4. 2 normal Not Available [address], [address], 12/05/2021 05:45:55 12/05/19 22 12/05/2021 VITAM IN B12/F OLATE , SERUM PANEL vitamin B12 1038 pg/mL 200-11 00 normal Not Available [address], [address], 12/05/2021 05:45:54 12/05/19 22 12/05/2021 VITAM IN B12/F OLATE , SERUM PANEL folate, serum 22.1 NG/mL normal Refer ence Range Low: <3.4 Borde rline : 3.4-5 .4 Karma l: >5.4 Not Available [address], [address], 12/05/2021 05:45:54 12/05/19 22 12/05/2021 COMPR EHENS JOSE METAB OLIC PANEL eGFR non-afr. gabonese 74 mL/mi n/1.7 3m2 > or = 60 normal Not Available [address], [address], 12/05/2021 05:45:54 12/05/19 22 12/05/2021 COMPR EHENS JOSE METAB OLIC PANEL glucose 75 mg/dL 65-99 normal Fasti ng refer ence inter niki Not Available [address], [address], 12/05/2021 05:45:54 12/05/19 22 12/05/2021 COMPR EHENS JOSE METAB OLIC PANEL urea nitrogen (BUN) 9 mg/dL 7-25 normal Not Available [address], [address], 12/05/2021 05:45:54 12/05/19 22 12/05/2021 COMPR EHENS JOSE METAB OLIC PANEL creatinine 0.96 mg/dL 0.50-1 .10 normal Not Available [address], [address], 12/05/2021 05:45:54 12/05/19 22 12/05/2021 COMPR EHENS JOSE METAB OLIC PANEL eGFR 86 mL/mi n/1.7 3m2 > or = 60 normal Not Available [address], [address], 12/05/2021 05:45:54 12/05/19 22 12/05/2021 COMPR EHENS JOSE METAB OLIC PANEL BUN/creatini ne ratio not applic able (calc ) 6-22 Not Available [address], [address], 12/05/2021 05:45:54 12/05/19 22 12/05/2021 COMPR EHENS JOSE METAB OLIC PANEL sodium 139 mmol/ L 135-14 6 normal Not Available [address], [address], 12/05/2021 05:45:54 12/05/19 22 12/05/2021 COMPR EHENS JOSE METAB OLIC PANEL potassium 4.3 mmol/ L 3.5-5. 3 normal Not Available [address], [address], 12/05/2021 05:45:54 12/05/19 22 12/05/2021 COMPR EHENS JOSE METAB OLIC PANEL chloride 104 mmol/ L 98-110 normal Not Available [address], [address], 12/05/2021 05:45:54 12/05/19 22 12/05/2021 COMPR EHENS JOSE METAB OLIC PANEL carbon dioxide 30 mmol/ L 20-32 normal Not Available [address], [address], 12/05/2021 05:45:54 12/05/19 22 12/05/2021 COMPR EHENS JOSE METAB OLIC PANEL calcium 9.3 mg/dL 8.6-10 .2 normal Not Available [address], [address], 12/05/2021 05:45:54 12/05/19 22 12/05/2021 COMPR EHENS JOSE METAB OLIC PANEL protein, total 7.1 g/dL 6.1-8. 1 normal Not Available [address], [address], 12/05/2021 05:45:54 12/05/19 22 12/05/2021 COMPR EHENS JOSE METAB OLIC PANEL albumin 4.6 g/dL 3.6-5. 1 normal Not Available [address], [address], 12/05/2021 05:45:54 12/05/19 22 12/05/2021 COMPR EHENS JOSE METAB OLIC PANEL globulin 2.5 g/dL_ (calc ) 1.9-3. 7 normal Not Available [address], [address], 12/05/2021 05:45:54 12/05/19 22 12/05/2021 COMPR EHENS JOSE METAB OLIC PANEL albumin/glob ulin ratio 1.8 (calc ) 1.0-2. 5 normal Not Available [address], [address], 12/05/2021 05:45:54 12/05/19 22 12/05/2021 COMPR EHENS JOSE METAB OLIC PANEL bilirubin, total 0.5 mg/dL 0.2-1. 2 normal Not Available [address] [address] [place], [address], 12/05/2021 05:45:54 12/05/19 22 12/05/2021 COMPR EHENS JOSE METAB OLIC PANEL alkaline phosphatase 52 U/L 31-125 normal Not Available [address], [address], 12/05/2021 05:45:54 12/05/19 22 12/05/2021 COMPR EHENS JOSE METAB OLIC PANEL AST 17 U/L 10-30 normal Not Available [address], [address], 12/05/2021 05:45:54 12/05/19 22 12/05/2021 COMPR EHENS JOSE METAB OLIC PANEL ALT 14 U/L 6-29 normal Not Available [address], [address], 12/05/2021 05:45:54 09/27/19 23 09/27/2022 IRON, TIBC AND JD TIN PANEL iron, total 115 mcg/d L 40-190 normal Not Available [address], [address], 09/27/2022 08:16:09 09/27/19 23 09/27/2022 IRON, TIBC AND JD TIN PANEL iron binding capacity 291 mcg/d L_(ca lc) 250-45 0 normal Not Available [address], [address], 09/27/2022 08:16:09 09/27/19 23 09/27/2022 IRON, TIBC AND JD TIN PANEL % saturation 40 %_(ca lc) 16-45 normal Not Available [address], [address], 09/27/2022 08:16:09 09/27/19 23 09/27/2022 IRON, TIBC AND JD TIN PANEL ferritin 32 NG/mL 16-232 normal Not Available [address], [address], 09/27/2022 08:16:09 09/27/19 23 09/27/2022 TSH+F REE T4 TSH 1.14 mIU/L normal Refer ence Range > or = 20 Years 0.40- 4.50 Pregn citlaly Range s First trime ster 0.26- 2.66 Secon d trime ster 0.55- 2.73 Third trime ster 0.43- 2.91 Not Available [address], [address], 09/27/2022 08:16:11 09/27/19 23 09/27/2022 TSH+F REE T4 T4, free 1.4 NG/dL 0.8-1. 8 normal Not Available [address], [address], 09/27/2022 08:16:11 09/27/19 23 09/27/2022 LIPID PANEL WITH RATIO S cholesterol, total 169 mg/dL <200 normal Not Available [address], [address], 09/27/2022 08:16:11 09/27/19 23 09/27/2022 LIPID PANEL WITH RATIO S HDL cholesterol 49 mg/dL > or = 50 low Not Available [address], [address], 09/27/2022 08:16:11 09/27/19 23 09/27/2022 LIPID PANEL WITH RATIO S triglyceride s 81 mg/dL <150 normal Not Available [address], [address], 09/27/2022 08:16:11 09/27/19 23 09/27/2022 LIPID PANEL WITH RATIO S LDL-choleste rol 103 mg/dL _(mary c) high Refer ence range : <100 Mamie able range <100 mg/dL for prima ry preve ntion ; <70 mg/dL for patie nts with CHD or diabe tic patie nts with > or = 2 CHD risk facto rs. LDL-C is now calcu lated using the Kellie n-Hop kins sudeep lopez, which is a valid ated novel metho d provi alex gordon r accur acy than the Fried ok equat ion in the estim ation of LDL-C . Kellie lopez SS et al. CHATO. 2013; 310(1 9): 2061- 2068 (http ://ed ucati on.Spot Runner. Kiss[employer]ds/f aq/FA Q164) Not Available [employer] [address], [address], 09/27/2022 08:16:11 09/27/19 23 09/27/2022 LIPID PANEL WITH RATIO S chol/HDLC ratio 3.4 (calc ) <5.0 normal Not Available [employer] [facility] [address] [place] [address], [address], 09/27/2022 08:16:11 09/27/19 23 09/27/2022 LIPID PANEL WITH RATIO S LDL/HDL ratio 2.1 (calc ) Below avera ge Risk: <2.34 [place] ge Risk: 2.35- 4.12 Moder ate Risk: 4.13- 5.56 High Risk: >5.57 Not Available [facility] [id number] [place] [address], [address], 09/27/2022 08:16:11 09/27/19 23 09/27/2022 LIPID PANEL WITH RATIO S non HDL cholesterol 120 mg/dL _(mary c) <130 normal For patie nts with diabe yani plus 1 major ASCVD risk facto r, treat ing to a non-H DL-C goal of <100 mg/dL (LDL- C of <70 mg/dL ) is consi radhad a therjames pefani dunno n. Not Available [employer] [facility] [address] [place] [address], [address], 09/27/2022 08:16:11 09/27/19 23 09/27/2022 COMPR EHENS JOSE METAB OLIC PANEL glucose 69 mg/dL 65-99 normal Fasti ng refer ence inter niki Not Available [facility] [address] [place], [address], 09/27/2022 08:16:12 09/27/19 23 09/27/2022 COMPR EHENS JOSE METAB OLIC PANEL urea nitrogen (BUN) 9 mg/dL 7-25 normal Not Available [facility] [address] [place] [address], [address], 09/27/2022 08:16:12 09/27/19 23 09/27/2022 COMPR EHENS JOSE METAB OLIC PANEL creatinine 0.86 mg/dL 0.50-0 .99 normal [id number]|2024-10-18 09:07:00|2024-10-18 09:07:00|XMS_ITS|[id number]|External Medical Summaries|[id number]|" Clinical Summary Created on: October 18, 2024 Vita Latif : 1980 Sex: Female Author Organization 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 09/27/19 22 Active FLUoxetine (PROzac) 20 mg capsule Take 40 mg by mouth daily. Active ergocalciferol (VITAMIN D2) 50,000 unit capsule Take 50,000 Units by mouth every 7 days. Active multivitamin,the rapeutic (THERAPEUTIC MULTIVITAMIN ORAL) Take by mouth. Activ e MAGNESIUM OXIDE ORAL Take by mouth. Activ e Active Problems No known active problems Encounters Date Type Department Care Team Description 09/06/2024 External Device Data [facility] ABSTRACTION Provider, Abstract 08/17/2024 External Device Data [facility] ABSTRACTION Provider, Abstract 08/16/2024 External Device Data [facility] ABSTRACTION Provider, Abstract 08/13/2024 External Device Data [facility] ABSTRACTION Provider, Abstract 08/13/2024 External Device Data [facility] ABSTRACTION Provider, Abstract 08/10/2024 External Device Data [facility] ABSTRACTION Provider, Abstract 08/10/2024 External Device Data [facility] ABSTRACTION Provider, Abstract 08/09/2024 External Device Data [facility] ABSTRACTION Provider, Abstract 08/02/2024 External Device Data [facility] ABSTRACTION Provider, Abstract from Last 3 Months Family History Medical History Relation Name Comments Colon Cancer Maternal Grandfather Mayank Esteban Colon Polyps Maternal Grandfather Mayank Esteban Anemia Maternal Grandmother Lexie Esteban Colon Cancer Maternal Grandmother Lexie Esteban Colon Polyps Maternal Grandmother Lexie Esteban Depression Maternal Grandmother Lexie Esteban Inflammatory Bowel Disease Maternal Grandmother Lexie Esteban Thyroid Disease Maternal Grandmother Lexie Esteban Breast Cancer Mother Ovarian Cancer Neg Hx Relation Name Status Comments Maternal Grandfather Mayank Esteban Maternal Grandmother Lexie Esteban Mother Social History Tobacco Use Types Packs/Day Years Used Date Smoking Tobacco: Never Tobacco Cessation:Counseling Given: Not Answered Alcohol Use Standard Drinks/Week Comments Yes 2 (1 standard drink = 0.6 oz pur e alcohol) Feeling Safe Answer Date Recorded Fear of Current or Ex-Partner Not on file 10 / Emotionally Abused Not on file 03/21/2024 Within the last year, have y ou been kicked, hit, slapped, or otherwise physically hurt by your partner or ex-partner? No 03/21/2024 Sexually Abused Not on file 03/21/2024 Feeling Safe Answer Date Recorded Are you in a relationship wi th someone who hurts you emotionally and/or physically? 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 Gender Identity Not on file Sexual Orientation Not on file Last Filed Vital Signs Vital Sign Reading Time Taken Comments Blood Pressure 102/60 03/21/2024 11:56 AM CDT Pulse 95 08/25/2023 9:35 PM CDT Temperature 36.7 C (98 F) 08/25/2023 9:35 PM CDT Respiratory Rate 18 08/25/2023 9:35 PM CDT Oxygen Saturation 99% 08/25/2023 9:35 PM CDT Inhaled Oxygen Concentration - - Weight 67.1 kg (148 lb) 03/21/2024 11:56 AM CDT Height 175.3 cm (5' 9 ) 03/21/2024 11:56 AM CDT Body Mass Index 21.86 03/21/2024 11:56 AM CDT Plan of Treatment Health Maintenance Due Date Last Done Comments DTAP/TDAP/TD VACCINES (1 - Tdap) 01/02/2000 HEPATITIS B VACCINES (1 of 3 - 19+ 3-dose series) 01/02/2000 HPV/Cotest (21-29) 2002 CERVICAL CANCER SCREENING 2011 HPV/Cotest (30-65) 2011 PAP SMEAR 2011 INFLUENZA VACCINE (#1) 2024 , 05/10/2019, 02/28/2017 BREAST CANCER SCREENING 03/19/2024 03/19/20 23, 08/06/2022, 01/17/2022, Additional history exists HPV VACCINES Aged Out No longer eligi ble based on patient's age to complete this topic Procedures Procedure Name Priority Date/Time Associated Diagnosis Comments MAMMO 3D SANDRA SCREEN IMPL BILAT W OR WO CAD Routine 03/19/2023 12:35 PM CDT Visit for screening mammogram from Last 3 Months or Most Recently Relevant to Health Maintenance Results * MAMMO SCRN MIA IMPL 3D SANDRA W OR WO CAD (03/19/2023 12:35 PM CDT) Anatomical Region Laterality Modality Breast Bilateral Mammography 03/19/2023 12:3 5 PM CDT Impressions 03/19/2023 2:38 PM CDT IMPRESSION: No mammographic evidence of malignancy. OVERALL FINAL ASSESSMENT: BI-RADS Category 2: Benign finding(s). RECOMMENDATION: Bilateral screening mammogram in one year. DICTATION LOCATION: [facility] 03/19/2023 2:38 PM CDT BILATERAL SCREENING DIGITAL IMPLANT MAMMOGRAM WITH 3D TOMOSYNTHESIS AND CAD DATE: 03/19/2023 12:35 PM COMPARISON: Multiple prior mammograms, dating back to 05/03/2018 and most recently 08/06/2022. HISTORY: Screening mammogram. History of breast augmentation and benign left breast biopsy. TECHNIQUE: Images were performed using 3D tomosynthesis images with reconstructed/synthetic 2D images and CAD analysis. Additional implant displaced views were obtained. BREAST COMPOSITION: The breasts are heterogeneously dense, which may obscure small masses. FINDINGS: Subpectoral, silicone implants are partially imaged and appear intact. Marker from prior benign biopsy is seen in the left breast. There is no suspicious mass, clustered microcalcification, or architectural distortion in either breast on 2D or 3D images. There has been no change in the mammographic appearance compared with the prior study. Procedure Note Santosh Olvera MD - 03/19/2023 BILATERAL SCREENING DIGITAL IMPLANT MAMMOGRAM WITH 3D TOMOSYNTHESIS AND CAD DATE: 03/19/2023 12:35 PM COMPARISON: Multiple prior mammograms, dating back to 05/03/2018 and most recently 08/06/2022. HISTORY: Screening mammogram. History of breast augmentation and benign left breast biopsy. TECHNIQUE: Images were performed using 3D tomosynthesis images with reconstructed/synthetic 2D images and CAD analysis. Additional implant displaced views were obtained. BREAST COMPOSITION: The breasts are heterogeneously dense, which may obscure small masses. FINDINGS: Subpectoral, silicone implants are partially imaged and appear intact. Marker from prior benign biopsy is seen in the left breast. There is no suspicious mass, clustered microcalcification, or architectural distortion in either breast on 2D or 3D images. There has been no change in the mammographic appearance compared with the prior study. IMPRESSION: No mammographic evidence of malignancy. OVERALL FINAL ASSESSMENT: BI-RADS Category 2: Benign finding(s). RECOMMENDATION: Bilateral screening mammogram in one year. 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
--- NOTE | 2024-10-18 11:15 | NEURO_ITS ---
Impression: # Complains of numbness of right 4th and 5th fingers. Not diabetic. # No Carpal Tunnel Syndrome. # Right ulnar neuropathy across the elbow. # Normal needle/EMG exam. Nerve Conduction Studies Anti Sensory Summary Table Stim Site NR Peak (ms) P-T Amp (µV) Site1 Site2 Delta-P (ms) Dist (cm) Costa (m/s) Left Median Anti Sensory (2-3nd Digit) Wrist 3.1 86.6 Wrist 2-3nd Digit 3.1 14.0 45 Wrist 3.0 81.9 Wrist 2-3nd Digit 3.1 14.0 45 Right Median Anti Sensory (2-3nd Digit) Wrist 3.2 59.7 Wrist 2-3nd Digit 3.2 14.0 44 Wrist 3.3 72.7 Wrist 2-3nd Digit 3.2 14.0 44 Left Radial Anti Sensory (Base 1st Digit) Wrist 2.0 33.4 Wrist Base 1st Digit 2.0 0.0 Right Radial Anti Sensory (Base 1st Digit) Wrist 2.1 43.5 Wrist Base 1st Digit 2.1 0.0 Left Ulnar Anti Sensory (5th Digit) Wrist 2.7 90.0 Wrist 5th Digit 2.7 14.0 52 Right Ulnar Anti Sensory (5th Digit) Wrist 2.7 85.1 Wrist 5th Digit 2.7 14.0 52 Motor Summary Table Stim Site NR Onset (ms) O-P Amp (mV) Site1 Site2 Delta-0 (ms) Dist (cm) Costa (m/s) Left Median Motor (Abd Poll Brev) Wrist 3.1 4.9 Elbow Wrist 4.9 29.0 59 Elbow 8.0 4.7 Right Median Motor (Abd Poll Brev) Wrist 3.0 3.1 Elbow Wrist 4.8 26.0 54 Elbow 7.8 3.0 Left Ulnar Motor (Abd Dig Minimi) Wrist 2.6 6.1 A Elbow Wrist 5.3 31.0 58 A Elbow 7.9 4.9 B Elbow Wrist 3.5 20.0 57 B Elbow 6.1 7.0 Right Ulnar Motor (Abd Dig Minimi) Wrist 2.9 7.8 A Elbow Wrist 5.7 28.0 49 A Elbow 8.6 6.3 B Elbow Wrist 4.1 19.0 46 B Elbow 7.0 6.4 F Wave Studies NR F-Lat (ms) L-R F-Lat (ms) Left Median (Mrkrs) (Abd Poll Brev) 27.02 0.70 Right Median (Mrkrs) (Abd Poll Brev) 27.72 0.70 Left Ulnar (Mrkrs) (Abd Dig Min) 27.04 1.85 Right Ulnar (Mrkrs) (Abd Dig Min) 28.89 1.85 EMG Side Muscle Nerve Root Ins Act Fibs Amp Dur Recrt Comment Right 1stDorInt Ulnar C8-T1 Nml Nml Nml Nml Nml Right Ext Indicis Radial (Post Int) C7-8 Nml Nml Nml Nml Nml Right Ext Digitorum Radial (Post Int) C7-8 Nml Nml Nml Nml Nml Right BrachioRad Radial C5-6 Nml Nml Nml Nml Nml Right PronatorTeres Median C6-7 Nml Nml Nml Nml Nml Right Abd Poll Brev Median C8-T1 Nml Nml Nml Nml Nml Right ABD Dig Min Ulnar C8-T1 Nml Nml Nml Nml Nml Right FlexPolLong Median (Ant Int) C7-8 Nml Nml Nml Nml Nml Right Abd Poll Long Radial (Post Int) C7-8 Nml Nml Nml Nml Nml Left 1stDorInt Ulnar C8-T1 Nml Nml Nml Nml Nml Left Ext Indicis Radial (Post Int) C7-8 Nml Nml Nml Nml Nml Left Ext Digitorum Radial (Post Int) C7-8 Nml Nml Nml Nml Nml Left BrachioRad Radial C5-6 Nml Nml Nml Nml Nml Left PronatorTeres Median C6-7 Nml Nml Nml Nml Nml Left Abd Poll Brev Median C8-T1 Nml Nml Nml Nml Nml Left ABD Dig Min Ulnar C8-T1 Nml Nml Nml Nml Nml Left FlexPolLong Median (Ant Int) C7-8 Nml Nml Nml Nml Nml Left Abd Poll Long Radial (Post Int) C7-8 Nml Nml Nml Nml Nml MTDD
--- NOTE | 2024-10-18 15:11 | WPDPFTINT ---
PFT Procedure Performed PFT Procedure Performed Spirometry with Pre/Post Bronchodilator Plethysmography (Lung Vol) Diffusing Cap (DLCO) Flow Vol Loop PFT Interpretation This is a pulmonary function test with pre and post-bronchodilator spirometry, plethysmography and diffusing capacity. The test was performed and results interpreted in accordance with the 2019 and 2005 ATS/ERS Task Force guidelines respectively using the Global Lung Function Initiative-2012 reference equations. Patient demonstrated good effort and cooperation. Reproducibility criteria were met. The quality of the pre bronchodilator spirometry maneuver was Grade A and post bronchodilator spirometry maneuver was Grade A. Findings: Spirometry: The contour the inspiratory and expiratory flow tracing are normal. The pre bronchodilator FVC is 4.06 L, 95% predicted. The pre bronchodilator FEV1 is 3.14 L, 91% predicted. The pre bronchodilator FEV1: FVC ratio 77%. The post bronchodilator FVC is 3.97 L, representing a 2% decrease. The post bronchodilator FEV1 is 3.17 L, representing a 1% increase. The post bronchodilator FEV1: FVC ratio is 80%. Plethysmography: The total lung capacity is 5.41 L, 93% predicted. The functional residual capacity is 2.87 L, 88% predicted. The residual volume is 1.34 L, 71% predicted. Diffusing capacity: The diffusing capacity unadjusted for hemoglobin and carboxyhemoglobin is 17.8, 70% predicted. The diffusing capacity adjusted for alveolar volume is 3.55, 79% predicted. Impression: The spirometry is normal without evidence of an obstructive abnormality. There is no significant improvement after inhaling a single dose of albuterol. The lung volumes are normal. The diffusing capacity unadjusted for hemoglobin and carboxyhemoglobin is mildly decreased and normalizes when adjusted for alveolar volume. There are no prior studies for comparison
== END 2024-10-18 09:00 | disposition home or self-care (01) ==
LOC: ANHCARD 08:59
PROVIDERS: PCP Physician Assistant; Visit Provider Physician Assistant
DX: G56.21 Lesion of ulnar nerve, right upper limb (principal); R06.09 Other forms of dyspnea
CPT/HCPCS: 93017; 94060; 94726; 94729; 95886; 95911

== ENCOUNTER 2025-04-14 08:39 | Outpatient (CLI) | payer OTHER, SELFPAY ==
--- OUTSIDE RECORDS SUMMARY | 2018-05-03 | XMS_ITS | Encounter Summary ---
Author Organization [facility] Healthcare Address [address] [place] [address] Care Team Providers Care Raker Buffing Wheel Name Role Phone Nedra Browning Primary Care Pr ovider Montrell Shaw MD Unavailable [phone] Reason for Visit * Diagnostic Imaging (Routine) - Closed Specialty Diagnoses / Procedures Referred By Sterling mijares Referred To Contact Procedures Breast Imaging Diagnostic Outside Reference Lucien Odell NP Phone: tel: fax: Referral ID Status Reason Start Date Expiration Date Visits Re quested Visits Authorized [id number] Closed 05/21/2022 06/20/2023 1 1 Encounter Details Date Type Department Care Team (Late st Contact Info) Description 05/03/2018 Hospital Encounter [facility] [address] [place] [id number] Social History Tobacco Use Types Packs/Day Years Used Date Smoking Tobacco: Never Smokeless Tobacco: Never Alcohol Use Standard Drinks/Week Comments Yes 1 (1 standard drink = 0.6 oz pur e alcohol) a week AUDIT-C Answer Date Recorded Q1: How often do you have a drink containing alc ohol? Monthly or less 09/20/2024 Q2: How many drinks containi ng alcohol do you have on a typical day when you are drinking? 1 or 2 09/20/2024 Q3: How often do you have si x or more drinks on one occasion? Monthly 09/20/2024 Comments Unknown Sex and Gender Information Value Date Recorded Sex Assigned at Not on file Legal Sex Female 3:20 AM GYNAECOLOGICAL ONCOLOGIST Gender Identity Female 12/22/2019 6:41 AM CDT Sexual Orientation Not on file documented as of this encounter Functional Status * BP Location Answer Date of Assessment Author Left arm 10/14/2023 3:47 PM CDT Nelli Rivera MA * AUDIT-C Score Answer Date of Assessment Author 3 09/20/2024 10:06 AM CDT Delmi Barrett CMA * Alcohol Use Question Answer Date of Assessment Author Q1: How often do you have a drink containing alcohol? Monthly or less 09/20/2024 10:06 AM DAGMART Sukh Aburto CMA Q2: How many drinks containing alcohol do you have on a typical day when you are drinking? 1 or 2 09/20/2024 10:06 AM DAGMART Sagar Aburto CMA Q3: How often do you have six or more drinks on one occasion? Monthly 09/20/2024 10:06 AM CDT Sukh Aburto CMA * BP Location Answer Date of Assessment Author Left arm 10/14/2023 3:47 PM CDT Nelli Rivera MA documented as of this encounter Plan of Treatment Not on file documented as of this encounter Procedures Procedure Name Priority Date/Time Associated Diagnosis Comments BREAST IMAGING MG DIAGNOSTIC OUTSIDE REFERENCE Routine 05/03/2018 12:00 AM GYNAECOLOGICAL ONCOLOGIST documented in this encounter Results * Breast Imaging Diagnostic Outside Reference (05/03/2018 12:00 AM GYNAECOLOGICAL ONCOLOGIST) Impressions [facility] - 05/21/2022 11:43 AM GYNAECOLOGICAL ONCOLOGIST These images are for Reference purposes only and have not been reviewed by [facility]. There will be no report generated by a [facility] Radiologist. Narrative [facility] - 05/21/2022 11:43 AM GYNAECOLOGICAL ONCOLOGIST EXAMINATION: Images For Reference Purposes Only us Lucien Odell NP IMG MAMMO PROCEDURES Final Result [facility] documented in this encounter Visit Diagnoses Not on filedocumented in this encounter Additional Health Concerns Infection Onset Date Last Indicated Resolved Time COVID: Suspected 12/20/2019 12/20/2019 12/22/2019 12:52 PM CDT Respiratory Infection ([place]), contact + droplet Comment:Automatically added due to negative COVID-19 result. 12/22/2019 12/22/2019 01/05/2020 3:0 6 AM CDT COVID: Suspected 10/14/2023 10/14/2023 10/14/2023 4:11 PM CDT COVID: Suspected 10/14/2023 10/14/2023 10/14/2023 8:33 PM CDT documented as of this encounter Care Teams Raker Buffing Wheel Relationship Specialty Start Date End Date Nedra Browning PA PCP - General Physician Pre Press Operator 01/22/18 12/21/19 Montrell Shaw MD [address] [place] [id number] 01/22/18 12/21/19 documented as of this encounter
--- OUTSIDE RECORDS SUMMARY | 2018-05-03 00:05 | XMS_ITS | Encounter Summary ---
Author Organization [facility] Healthcare Address [address] [place] [address] Care Team Providers Care Can Cutter Name Role Phone Nedra Browning Primary Care Pr ovider Montrell Shaw MD Unavailable [phone] Reason for Visit * Diagnostic Imaging (Routine) - Closed Specialty Diagnoses / Procedures Referred By Sterling mijares Referred To Contact Procedures Breast Imaging US Outside Reference Lucien Odell NP Phone: tel: fax: Referral ID Status Reason Start Date Expiration Date Visits Re quested Visits Authorized [id number] Closed 05/21/2022 06/20/2023 1 1 Encounter Details Date Type Department Care Team (Late st Contact Info) Description 05/03/2018 12:05 AM DEAN OF GRADUATE STUDIES Hospital Encounter [facility] [address] [place] [id number] Social History Tobacco Use Types Packs/Day Years [...] on file Legal Sex Female 3:20 AM DEAN OF GRADUATE STUDIES Gender Identity Female 12/22/2019 6:41 AM CDT [...] drinking? 1 or 2 09/20/2024 10:06 AM CDT Sagar Aburto CMA Q3: How often do [...] US OUTSIDE REFERENCE Routine 05/03/2018 12:05 AM DEAN OF GRADUATE STUDIES documented in this encounter Results * Breast Imaging US Outside Reference (05/03/2018 12:05 AM DEAN OF GRADUATE STUDIES) Impressions [facility] - 05/21/2022 11:43 AM DEAN OF GRADUATE STUDIES These images are for Reference purposes only and have not been reviewed by [facility]. There will be no report generated by a [facility] Radiologist. Narrative [facility] - 05/21/2022 11:43 AM DEAN OF GRADUATE STUDIES EXAMINATION: Images For Reference Purposes Only us [...] documented as of this encounter Care Teams Can Cutter Relationship Specialty Start Date End Date Nedra Browning PA PCP - General Physician Block Bolter Mule Operator 01/22/18 12/21/19 Montrell Shaw MD [address] [place] [id number] 01/22/18 12/21/19 documented as of this encounter
--- NOTE | ~2025-04-14 | XR_ITS ---
EXAMINATION: XR UGIAC wo kub DATE: 04/14/2025 09:46 INDICATION: Gastroesophageal reflux disease TECHNIQUE: The patient drank thick barium, gas-producing crystals, and thin barium. A total of 481 fluoroscopic images of the esophagus, stomach, and proximal small bowel were obtained. Fluoroscopy exposure time was 1.3 minutes. COMPARISON: None. FINDINGS: The esophagus is normal without mass or stricture. Esophageal motility is normal. There is no hiatal hernia. There was no gastroesophageal reflux with provocative maneuvers. The stomach and proximal small bowel are normal. Incidentally noted are couple surgical clips in the soft tissues at the anterior lower neck suggestive of prior thyroidectomy. IMPRESSION: 1. Normal upper GI study. Reviewed, dictated and finalized at location A. UME SHOP COORDINATOR IMPRESSION: 1. Normal upper GI study.
--- OUTSIDE RECORDS SUMMARY | 2025-04-14 09:07 | XMS_ITS | Clinical Summary ---
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 09/27/19 22 Active FLUoxetine (PROzac) 20 mg capsule Take 40 mg by mouth daily. Active ergocalciferol (VITAMIN D2) 50,000 unit capsule Take 50,000 Units by mouth every 7 days. Active multivitamin,the rapeutic (THERAPEUTIC MULTIVITAMIN ORAL) Take by mouth. Activ e MAGNESIUM OXIDE ORAL Take by mouth. Activ e Active Problems No known active problems Family History Medical History Relation Name Comments Colon Cancer Maternal Grandfather Mayank Esteban Colon Polyps Maternal Grandfather Mayank Esteban Anemia Maternal Grandmother Lexie Eulalia Colon Cancer Maternal Grandmother Lexie Eulalia Colon Polyps Maternal Grandmother Lexie Eulalia Depression Maternal Grandmother Lexie Herrerain Inflammatory Bowel Disease Maternal Grandmother Lexie Eulalia Thyroid Disease Maternal Grandmother Lexiepedrito Herrerain Breast Cancer Mother Ovarian Cancer Neg Hx Relation Name Status Comments Maternal Grandfather Mayank Eulalia Maternal Grandmother Lexie Eulalia Mother Social History Tobacco Use Types Packs/Day Years Used Date Smoking Tobacco: Never Tobacco Cessation:Counseling Given: Not Answered Alcohol Use Standard Drinks/Week Comments Yes 2 (1 standard drink = 0.6 oz pur e alcohol) Feeling Safe Answer Date Recorded Fear of Current or Ex-Partner Not on file Emotionally Abused Not on file 03/21/2024 Within [...] on file 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 Gender Identity Not on file Sexual Orientation [...] 11:56 AM CDT Height 175.3 cm (5' 9) 03/21/2024 11:56 AM CDT Body Mass Index 21.86 03/21/2024 11:56 AM CDT Plan of Treatment Health Maintenance Due Date Last Done Comments DTAP/TDAP/TD VACCINES (1 - Tdap) 01/02/2000 HEPATITIS B VACCINES (1 of 3 - 19+ 3-dose series) 01/02/2000 HPV/Cotest (21-29) 2002 HPV VACCINES (1 - 3-dose SCD M series) 01/02/2008 CERVICAL CANCER SCREENING 2011 HPV/Cotest (30-65) 2011 PAP SMEAR 2011 BREAST CANCER SCREENING 03/19/2024 03/19/20 23, 08/06/2022, 01/17/2022, Additional history exists INFLUENZA VACCINE (#1) 2025 0, 05/10/2019, 02/28/2017 Procedures Procedure Name Priority Date/Time Associated Diagnosis [...] mammogram in one year. DICTATION LOCATION: [facility] 03/19/2023 2:38 PM CDT BILATERAL SCREENING DIGITAL [...] screening mammogram in one year. [facility] [place] [facility] MAMMO ORDERABLES Final Re sult from Last 3 Months or Most Recently Relevant to Health Maintenance Insurance BENEFIT PLANS Member Subscriber Plan / Payer ( fective 2024-Present) Name:Vita Latif Relation to Subscriber:Self Name:Vita Latif Payer ID:Not on file Type:[employer] Address: [facility] [id number] [id number] BENEFIT PLANS Member Subscriber Plan / Payer (Ef fective 2024-Present) Name:Vita Latif Relation to Subscriber:Self Name:Vita Latif Payer ID:Not on file Type:[employer] Address: [facility] [id number] [place] [phone]
--- OUTSIDE RECORDS SUMMARY | 2025-04-14 09:07 | XMS_ITS | Clinical Summary ---
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 This disclosure is being madepursuant to the Care Everywhere program and may not contain all information available regarding this patient. Last updated 18.[facility] Allergies No known active allergies Medications * Be aware that medications may not be up to date on this document. Alwaysverify current medications with the patient. 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 Gender Identity Not on file Sexual [...] 8:53 AM CDT Height 175.3 cm (5' 9) 02/18/2021 8:53 AM CDT Body Mass Index 23.63 02/18/2021 8:53 AM CDT Plan of Treatment Health Maintenance Due Date Last Done Comments LIPID TESTING 1981 MAMMOGRAM 1981 HIV SCREENING 01/02/1996 HEPATITIS C SCREENING 12/28/1998 DTAP/TDAP/TD VACCINES (1 - Tdap) 01/02/2000 HEPATITIS B VACCINE (1 of 3 - 19+ 3-dose series) 01/02/2000 PAP SMEAR 2002 HPV VACCINE (1 - 3-dose SCDM series) 01/02/2008 DEPRESSION SCREENING 06/08/2024 COVID-19 VACCINE (2 - 2024-2 6 season) 2025 05/10/2021 INFLUENZA VACCINE (#1) 2025 , 05/10/2019, 02/28/2017 ZOSTER VACCINE (1 of 2) [...] this topic Medical Devices Implanted Type Area Watch Dial Stoner Device Identifier Shelf Expiration Date Model / Serial / Lot Colona Sut Arthx Fbrtak Strl Lf Disp Implanted:Qty: 2 on 08/30/2020 by Yamel García MD at [facility] Left: Shoulder [employer] 07/08/2025 [id number]-[id number] / / [id number] Fibertak Biceps Implant Set Implanted:Qty: 1 on 08/30/2020 by Yamel García MD at [facility] Left: Shoulder 07/08/2025 AR-3670 / / [id number] Explanted Type Area Watch Dial Stoner Device Identifier Shelf Expiration Date Model / Serial / Lot Kit Arthsc Fx Crv Spr Disp Explanted:Qty: 1 on 08/30/[address] [facility] Left: Shoulder [employer] [id number] / / Insurance [facility] [place], [place] HE[employer]LINK HE[employer]LINK Care Teams Occupational Safety And Health Manager Relationship Specialty Start Date End Date Nedra Agosto PA [address] [place] [address] PCP - General 12/17/21 [place]ía [place] [id number] [place] [address] Orthopedic Surgery 08/14/20
--- OUTSIDE RECORDS SUMMARY | 2025-04-14 09:07 | XMS_ITS | Patient Health Record ---
Author Organization [facility] Address [address] [facility] [address] [place] [address] Care Team Providers Care Brick Pointer Name Role Phone Nedra Lal Primary Care Provider Sofia Vegas Unavailable [phone] Justus Zhou Unavailable [phone] James South Unavailable [phone] Allergies No Known Allergies Results Component Value Reference Range Notes UDT Reviewed date:03/30/2025 09:56:55 AM Interpretation: Performing Lab: Notes/Report: Amphetamine (AMP) n Buprenorphine (BUP) n Oxazepam (BZO) n Cocaine (KAI) n Methamphetamine (mAMP) n Methylenedioxymethamphetamine (MDMA) n Morphine (MOP) n Methadone (MTD) n Oxycodone (OXY) n THC n x n 0 - 1000 ng/ml UDT Reviewed date:09/06/2024 05:06:54 PM Interpretation: Performing Lab: Notes/Report: Amphetamine (AMP) NEG 0 - 1000 ng/ml Buprenorphine (BUP) NG 0 - 10 ng/ml Oxazepam (BZO) NEG 0 - 300 ng/ml Cocaine (KAI) NEG 0 - 300 ng/ml Methamphetamine (mAMP) NEG 0 - 300 ng/ml Methylenedioxymethamphetamine (MDMA) NEG 0 - 500 ng/ml Morphine (MOP) NEG 0 - 25 ng/ml Methadone (MTD) NEG 0 - 300 ng/ml Oxycodone (OXY) NEG 0 - 300 ng/ml THC NEG 0 - 50 ng/ml x NEG 0 - 1000 ng/ml x NEG 0 - 1000 ng/ml x NEG 0 - 300 ng/ml x NEH 0 - 300 ng/ml x NEG 0 - 300 ng/ml UDT Reviewed date:01/19/2025 02:30:47 PM Interpretation: Performing Lab: Notes/Report: Amphetamine (AMP) n 0 - 1000 ng/ml Buprenorphine (BUP) n 0 - 10 ng/ml Oxazepam (BZO) n 0 - 300 ng/ml Cocaine (KAI) n 0 - 300 ng/ml Methamphetamine (mAMP) n 0 - 300 ng/ml Methylenedioxymethamphetamine (MDMA) n 0 - 500 ng/ml Morphine (MOP) n 0 - 25 ng/ml Methadone (MTD) n 0 - 300 ng/ml Oxycodone (OXY) n 0 - 300 ng/ml THC n 0 - 50 ng/ml x n 0 - 1000 ng/ml x n 0 - 1000 ng/ml x n 0 - 300 ng/ml x n 0 - 300 ng/ml Reason For Referral No Information Medications Medication SIG (Take, Route, Frequency, Duration) Notes Start Date End Date Status Spironolactone 50 MG Tablet TAKE 1 TABLET EVERY OTHER DAY, ALTERNATING WITH 25MG TABLET Oral; Duration: 90 Days Active Progesterone 100 MG Capsule TAKE 1 TO 2 CAPSULES AT BEDTIME Oral; Duration: 90 Days Active FLUoxetine HCl 20 MG Capsule 1 capsule Orally Once a day Active Methylphenidate HCl ER 36 MG Tablet Extended Release 24 Hour 1 tablet in the morning Orally Once a day; Duration: 30 days 03/29/2025 Active Lisdexamfetamine Dimesylate 50 MG Capsule 1 capsule in the morning Orally Once a day; Duration: 30 days note dose decrease 12/10/2024 Not-Taking Vitamin D (Ergocalciferol) 1.25 MG (05467 UT) Capsule 1 capsule Oral once weekly; Duration: 90 days Active FLUoxetine HCl 10 MG Capsule 1 capsule Oral Once a day; Duration: 90 days total daily dose 50mg 03/29/2025 Active Synthroid 125 MCG Tablet TAKE 1 TABLET BY MOUTH EVERY MORNING Oral; Duration: 30 Days Active Mounjaro 15 MG/0.5ML Solution Auto-injector INJECT 15 MG SUBCUTANEOUSLY WEEKLY Subcutaneous; Duration: 28 Days Active FLUoxetine HCl 40 MG Capsule 1 capsule Oral Once a day; Duration: 90 days total daily dose 50mg 03/29/2025 Active Tretinoin 0.05 % Cream APPLY TO AREAS OF ACNE NIGHTLY. MOISTURE AFTER. External; Duration: 90 Days Active Wellbutrin XL 300 MG Tablet Extended Release 24 Hour 1 tablet in the morning Oral Once a day 03/29/2025 Active Minoxidil 2.5 MG Tablet Oral; Duration: 90 Days Active Social History Tobacco Use: Social History Observation Description Date Details (start date - stop date) Never Smoker NA - NA Sex Assigned At : Social History Observation Description Sex Assigned At Female Social History Miscellaneous: Social Info Question Answer Notes Education: Highest achieved level of education Bachelors Drug/Alcohol: Social Info Question Answer Notes Drugs Have you used drugs other than those for medical reasons in the past 12 months? No AUDIT-C (Standard) Did you have a drink containing alcohol in the past year? Yes How often did you have a drink containing alcohol in the past year? Monthly or less (1 point) How many drinks did you have on a typical day when you were drinking in the past year? 3 or 4 drinks (1 point) How often did you have six or more drinks on one occasion in the past year? 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 Den ies Do you drink alcohol? Occasional ly Problems Problem Type SNOMED Code ICD Code Onset Dates Problem Status W/U Status Risk Notes Problem Screening for cardiovascular system disease (975026477) Encounter for screening for cardiovascular disorders (Z13.6) Active confirmed Problem Depression Screening (045608953) Encounter for screening for depression (Z13.31) Active confirmed Problem Mild recurrent major depression (39388666) MDD (major depressive disorder), recurrent episode, mild (F33.0) Active confirmed Problem Attention deficit hyperactivity disorder (802045409) Attention deficit hyperactivity disorder (ADHD), combined type (F90.2) Active confirmed Problem Unable to concentrate (finding) (97199226) Difficulty concentrating (R41.840) Active confirmed Vital Signs Heart Rate 83 /min 03/29/2025 Height-cm 175.31 cm 03/29/2025 Blood pressure diastolic 66 mm Hg 03/29/2025 Weight-kg 68.04 kg 03/29/2025 Height 69.02 in 03/29/2025 Blood pressure systolic 98 mm Hg 03/29/2025 Weight 150 lbs 03/29/2025 BMI 22.14 kg/m2 03/29/2025 Procedures Procedure Date Ordered Date Performed Result Body Sit e ADHD Testing 09/05/2024 09/06/2024 N/A Encounters Encounter [facility] [address] [facility] [address] [place] [address] 09/05/2024 James South Encounter for screen ing for depression Z13.31 ; Difficulty concentrating R41.840 and MDD (major depressive disorder), recurrent episode, mild F33.[address] [facility] [address] [place] [address] 09/06/2024 Justus Zhou Lack of concentratio n R41.840 [facility] [address] [place] [address] [address] [facility] [address] [place] [address] 09/13/2024 James South Attention deficit hyperactivity disorder (ADHD), combined type F90.2 ; MDD (major depressive disorder), recurrent episode, mild F33.0 ; Encounter for screening for depression Z13.31 and Encounter for screening for cardiovascular disorders Z13.[address] [address] 10/10/2024 Sofiathai Shelton MDD (major depressiv e disorder), recurrent episode, mild F33.0 ; Attention deficit hyperactivity disorder (ADHD), combined type F90.2 ; Encounter for screening for depression Z13.31 ; Encounter for screening for cardiovascular disorders Z13.6 and Negative depression screening Z13.31 [facility] [address] [address] 11/10/2024 Sofia hSelton Encounter for screen ing for cardiovascular disorders Z13.6 ; MDD (major depressive disorder), recurrent episode, mild F33.0 ; Attention deficit hyperactivity disorder (ADHD), combined type F90.2 ; Encounter for screening for depression Z13.31 and Negative depression screening Z13.31 [facility] [address] [facility] [address] [place] [address] 01/19/2025 Sofia Kurantoinette MDD (major depressiv e disorder), recurrent episode, mild F33.0 and Attention deficit hyperactivity disorder (ADHD), combined type F90.2 [facility] [address] [facility] [address] [place] [address] 03/29/2025 Sofiathai Shelton MDD (major depressiv e disorder), recurrent episode, mild F33.0 and Attention deficit hyperactivity disorder (ADHD), combined type F90.2 [facility] [address] [place] [address] [place] [address] 12/01/2024 Sofia Kurantoinette [facility] [address] [place] [address] [place] [address] 11/05/2024 Sofiathai Shelton MDD (major depressiv e disorder), recurrent episode, mild F33.0 [facility] [address] [facility] [address] [place] [address] 11/11/2024 Sofia Kurantoinette [facility] [address] [facility] [address] [place] [address] 12/09/2024 Sofia Kathleenantoinette [facility] [address] [facility] [address] [place] [address] 12/09/2024 Sofiathai Shelton Attention deficit hyperactivity disorder (ADHD), combined type F90.2 [place] [address] [facility] [address] [place] [address] 12/10/2024 Sofiathai Shelton [place] [address] [facility] [address] [place] [address] 01/20/2025 Sofia Shelton Assessments Encounter Date Diagnosis (ICD Code) Assessment Notes Treatment Notes Treatment Clinical Notes Section Notes 09/05/2024 Encounter for screening for depression (ICD-10 - Z13.31) 09/05/2024 Difficulty concentrating (ICD-10 - R41.840) 09/06/2024 Lack of concentration (ICD-10 - R41.840) ADHD Assessment Analysis Client: Female, Age 35 to 44 Assessment Date: September 06, 2024 Tool Used: [facility] Protocol with ASRS Questionnaire 1. ASRS Questionnaire Results Part A (Core ADHD Behaviours): 6 (Threshold is more than 3) Part B (Supporting Behaviours): 12 Interpretation: Strongly indicative of ADHD symptoms across both primary and supporting domains. 2. Cognitive Markers Summary Markers Outside Typical Range: 3 This denotes specific cognitive inefficiencies, particularly in working memory and response inhibition. 3. Cognitive Task Breakdown Domain Measure Result Percentile Interpretation Planning Score: 11 (cutoff 10) 18 Borderline planning ability, slightly above threshold Working Memory (Token Search) Score: 4 (cutoff 4.6) 7 Significantly below typical range, suggests difficulty with mental organization and updating Attention (Feature Match) Reaction Time: 3195 ms 67 Slow but accurate, reflects preserved attention with adequate accuracy Response Inhibition (Double Trouble) Reaction Time: 3991 ms 100 Excessively slow response suggests delayed processing under interference Reaction Time Variability: 1708 ms 98 Very high variability; indicates fluctuating focus or lapses Interference Ratio (RT): 0.85 2 Extremely low; inefficient handling of cognitive conflict Sustained Attention (SART) Commission Errors: 2 4 Below average; possible minor impulsivity RT Variability: 133 ms 45 Mildly fluctuating sustained attention Slowing after errors: -25 ms 31 Limited error awareness or post-error adjustment 4. Integrated Profile: Self-Report vs Objective Measures Symptom Domain ASRS Report Cognitive Findings Interpretation Inattention High (Part A and B) Below typical working memory and interference handling Supportive Impulsivity Reported in Part B Slightly elevated commission errors, high RT variability Supportive Executive Function Task initiation and organization concerns reported Weak working memory, borderline planning score Supportive 5. Clinical Interpretation The ASRS is strongly positive, pointing to ADHD symptoms that impact both behavioral regulation and attentional control. Objective testing confirms impairments in spatial working memory, reaction time variability, and inhibition under cognitive interference. These markers are consistent with executive function difficulties, especially in environments with complex or conflicting demands. Despite a few average scores (e.g., attention accuracy and omission errors), the variability and slowness across tasks reflect effortful control and possible cognitive fatigue. 6. Recommendations Clinical: A formal diagnostic evaluation is warranted to confirm ADHD based on the strong consistency between subjective and objective data. Evaluate for comorbid conditions such as anxiety or sleep-related disturbances which may contribute to performance variability. Cognitive/Behavi oral Strategies: Use external supports: task timers, visual aids, and cueing systems to offset working memory deficits. Prioritize breaks during cognitively demanding tasks to reduce fatigue-related dips in performance. Consider mindfulness or metacognitive training to improve interference handling and error monitoring. Workplace/Educat ional: Where relevant, suggest accommodations such as extended time, structured routines, or reduced task-switching demands. 09/13/2024 MDD (major depressive disorder), recurrent episode, mild (ICD-10 - F33.0) SSRI/SNRI side effects discussed including but not limited to, gastric upset, nausea, vomiting, diarrhea and/or constipation, weight changes, sexual side effects including loss of libido, increased suicidal thoughts/behaviors in children and young adults, and serotonin syndrome. 09/13/2024 Attention deficit hyperactivity disorder (ADHD), combined type (ICD-10 - F90.2) Assessment and plan reviewed with patient Call for problems with medication, side effects or need for dosage change Compliance issues reviewed Discussed the risks/benefits of this medication Discussed medication side effects Return if symptoms worsen Treatment options reviewed. discussed that it can take weeks to see full therapeutic effects of psychotropic medications. discussed when to seek emergency services. discussed crisis prevention hotline 988. 10/10/2024 MDD (major depressive disorder), recurrent episode, mild (ICD-10 - F33.0) SSRI/SNRI side effects discussed including but not limited to, gastric upset, nausea, vomiting, diarrhea and/or constipation, weight changes, sexual side effects including loss of libido, increased suicidal thoughts/behaviors in children and young adults, and serotonin syndrome. 10/10/2024 Attention deficit hyperactivity disorder (ADHD), combined type (ICD-10 - F90.2) Assessment and plan reviewed with patient Call for problems with medication, side effects or need for dosage change Compliance issues reviewed Discussed the risks/benefits of this medication Discussed medication side effects Return if symptoms worsen Treatment options reviewed. discussed that it can take weeks to see full therapeutic effects of psychotropic medications. discussed when to seek emergency services. discussed crisis prevention hotline 988. 11/05/2024 MDD (major depressive disorder), recurrent episode, mild (ICD-10 - F33.0) 11/10/2024 Encounter for screening for cardiovascular disorders (ICD-10 - Z13.6) 12/09/2024 Attention deficit hyperactivity disorder (ADHD), combined type (ICD-10 - F90.2) 01/19/2025 MDD (major depressive disorder), recurrent episode, mild (ICD-10 - F33.0) SSRI/SNRI side effects discussed including but not limited to, gastric upset, nausea, vomiting, diarrhea and/or constipation, weight changes, sexual side effects including loss of libido, increased suicidal thoughts/behaviors in children and young adults, and serotonin syndrome. 03/29/2025 MDD (major depressive disorder), recurrent episode, mild (ICD-10 - F33.0) SSRI/SNRI side effects discussed including but not limited to, gastric upset, nausea, vomiting, diarrhea and/or constipation, weight changes, sexual side effects including loss of libido, increased suicidal thoughts/behaviors in children and young adults, and serotonin syndrome. 03/29/2025 Attention deficit hyperactivity disorder (ADHD), combined type (ICD-10 - F90.2) ADHD Stimulant Education -Discussed with patient risk of misuse, abuse, and addiction before prescribing stimulant medicines. -Counseled not to share their prescribed stimulant with anyone else. -Educated patient will monitor during treatment: regularly assess and monitor them for signs and symptoms of nonmedical use, addiction, and potential diversion, which may be evidenced by more frequent renewal requests and medication metabolites absent from urine drug screens. -Random UDS (at least every three months or more frequently deemed by provider). -Per office policy, only prescribed to local pharmacy in [place], no early refills on control substance. 01/19/2025 Attention deficit hyperactivity disorder (ADHD), combined type (ICD-10 - F90.2) Assessment and plan reviewed with patient Call for problems with medication, side effects or need for dosage change Compliance issues reviewed Discussed the risks/benefits of this medication Discussed medication side effects Return if symptoms worsen Treatment options reviewed. discussed that it can take weeks to see full therapeutic effects of psychotropic medications. discussed when to seek emergency services. discussed crisis prevention hotline 988. Electronic Prior Authorization was requested for Lisdexamfetamine Dimesylate 50 MG Capsule. Provider can order medication once approval received. 11/10/2024 MDD (major depressive disorder), recurrent episode, mild (ICD-10 - F33.0) SSRI/SNRI side effects discussed including but not limited to, gastric upset, nausea, vomiting, diarrhea and/or constipation, weight changes, sexual side effects including loss of libido, increased suicidal thoughts/behaviors in children and young adults, and serotonin syndrome. 09/13/2024 Encounter for screening for depression (ICD-10 - Z13.31) 10/10/2024 Encounter for screening for depression (ICD-10 - Z13.31) 09/05/2024 MDD (major depressive disorder), recurrent episode, mild (ICD-10 - F33.0) 09/13/2024 Encounter for screening for cardiovascular disorders (ICD-10 - Z13.6) 10/10/2024 Encounter for screening for cardiovascular disorders (ICD-10 - Z13.6) 11/10/2024 Attention deficit hyperactivity disorder (ADHD), combined type (ICD-10 - F90.2) Assessment and plan reviewed with patient Call for problems with medication, side effects or need for dosage change Compliance issues reviewed Discussed the risks/benefits of this medication Discussed medication side effects Return if symptoms worsen Treatment options reviewed. discussed that it can take weeks to see full therapeutic effects of psychotropic medications. discussed when to seek emergency services. discussed crisis prevention hotline 988. 11/10/2024 Encounter for screening for depression (ICD-10 - Z13.31) 10/10/2024 Negative depression screening (ICD-10 - Z13.31) 11/10/2024 Negative depression screening (ICD-10 - Z13.31) 09/05/2024 Other Learning About Depression Screening material was printed Suspected Attention-Defici t/Hyperactivity Disorder Assessment: Patient presents with multiple symptoms consistent with ADHD, including difficulty sustaining attention, careless mistakes at work, poor listening skills, difficulty organizing tasks, forgetfulness, excessive talking, interrupting others, and feeling constantly on the go. These symptoms have been present since childhood, although the patient was never formally diagnosed. The patient's Crabtree Depression Inventory score is 16, and ABDELRAHMAN score is also 16, indicating mild to moderate symptoms of depression and anxiety. Differential diagnoses include anxiety disorder and thyroid dysfunction, given the patient's history of thyroidectomy and current use of Synthroid. Plan: - Schedule ADHD testing upstairs - Patient to complete drug screen on the day of ADHD testing - Follow-up appointment scheduled one week after ADHD testing to discuss results and treatment options - Advised patient to refrain from substance use. Anxiety Assessment: Patient reports a history of anxiety and is currently taking vortioxetine, alternating between 30mg and 40mg daily. ABDELRAHMAN-7 score of 16 indicates moderate anxiety symptoms. Patient reports excessive worry, restlessness, and isolative behavior. Plan: - Continue vortioxetine, alternating 30mg and 40mg daily - Monitor for side effects and efficacy depression patient denied depression BDI: 16 - continue bupripion - continue fluoxetine - continue therapy The note is transcribed using speech recognition software. It is a reflection of a visit with the patient. It might have some inaccuracy, including medication names and transcribing errors, though efforts have been made to correct them. 09/13/2024 Other Lisdexamfetamin e material was published Attention-Defici t/Hyperactivity Disorder (ADHD) Assessment: Patient reports longstanding symptoms consistent with ADHD, including difficulty sitting still and focusing since childhood. ADHD screening test results were positive, with a score of 6 on core ADHD factors (indicative score >3) and 12 on supporting behaviors. Objective testing confirms impairments in spatial working memory, reaction time, variability, and inhibition under cognitive interference. Patient reports significant impact on daily life. Family history is notable for suspected ADHD in her father. Previous trials of Wellbutrin have been ineffective for ADHD symptoms. Patient experimented with her son's stimulant medication and noticed improved focus during conversation. Plan: - Initiate Vyvanse - Informed patient of slower onset and longer duration compared to other stimulants - Discussed monthly follow-up requirement for stimulant medications - Provided 1-month supply of medication - Follow up with Sofia - Patient to download [employer] jessica from website for direct messaging Anxiety Assessment: Patient reports current anxiety level of 2/10, with typical levels ranging from 6-7/10 depending on the situation. No specific anxiety-provokin g factors or situations were discussed in this encounter. Plan: - continue current medications as prescribed - encouraged initiation of therapy. The note is transcribed using speech recognition software. It is a reflection of a visit with the patient. It might have some inaccuracy, including medication names and transcribing errors, though efforts have been made to correct them. 10/10/2024 Other Increase lisdexamfetamine to 40mg daily for ADHD management Decrease fluoxetine to 30mg daily, would like to eventually limit total amount of medications. Patient educated on all medications including potential benefits, side effects, risks. Educated on proper dosing schedule and importance of compliance. [place]MP report checked and consistent with prescription history, no controlled substance prescriptions from other providers. Previous records reviewed for continuity of care -Assessment and treatment plan reviewed with patient. -Compliance with treatment plan importance discussed. -Discussed the risks/benefits of this medication -Discussed medication side effects. -Contact office if symptoms worsen. -Discussed that it can take up to 6-8 weeks to see full therapeutic effects of psychotropic medications. -Crisis prevention hotline 988. 11/10/2024 Other Increase Vyvanse to 60mg daily for ADHD management -refill for November and December sent in today Patient educated on all medications including potential benefits, side effects, risks. Educated on proper dosing schedule and importance of compliance. [place] report checked and consistent with prescription history, no controlled substance prescriptions from other providers. -Assessment and treatment plan reviewed with patient. -Compliance with treatment plan importance discussed. -Discussed the risks/benefits of this medication -Discussed medication side effects. -Contact office if symptoms worsen. -Discussed that it can take up to 6-8 weeks to see full therapeutic effects of psychotropic medications. -Crisis prevention hotline 988. 01/19/2025 Other Increase fluoxetine to 50mg daily for mood ADHD stable on lisdexamfetamine 50mg daily Patient educated on all medications including potential benefits, side effects, risks. Educated on proper dosing schedule and importance of compliance. [place] report checked and consistent with prescription history, no controlled substance prescriptions from other providers. -Assessment and treatment plan reviewed with patient. -Compliance with treatment plan importance discussed. -Discussed the risks/benefits of this medication -Discussed medication side effects. -Contact office if symptoms worsen. -Discussed that it can take up to 6-8 weeks to see full therapeutic effects of psychotropic medications. -Crisis prevention hotline [phone]. 03/29/2025 Other Discontinue Vyvanse Start Concerta 36mg daily for ADHD management Continue fluoxetine 70mg daily, can consider increase to 80mg at next visit if needed Patient educated on all medications including potential benefits, side effects, risks. Educated on proper dosing schedule and importance of compliance. [place] PDMP report checked and consistent with prescription history, no controlled substance prescriptions from other providers. -Assessment and treatment plan reviewed with patient. -Compliance with treatment plan importance discussed. -Discussed the risks/benefits of this medication -Discussed medication side effects. -Contact office if symptoms worsen. -Discussed that it can take up to 6-8 weeks to see full therapeutic effects of psychotropic medications. -[facility] Plan Of Treatment Next Appt Details Provider Name:Sofia lawler, 04/25/2025 08:15:00 AM, [address], [facility] [address], [place], [address], Insurance Providers Payer Name Payer Address Payer Phone Subscriber Number Group Number Insured Name Patient Relationship to Insured Coverage Start Date Coverage End Date [employer] [address] [place] [address] [id number] AMY Latif Self - patient is the insured Medical (General) History Medical History History ICD Code Problems: Generalized anxiety disorder Recurrent major depressive episodes, mil d Graves' disease Surgical History Surgery Date(Month/Year) section total thyroidectomy breast augmentation
--- OUTSIDE RECORDS SUMMARY | 2025-04-14 09:07 | XMS_ITS | Clinical Summary ---
Author Organization [facility] Address [address] [place] [address] Care Team Providers Care Bee Rancher Name Role Phone Nedra Browning Unavailable Nedra Browning Primary Care Pr ovider Allergies No known active allergies Medications buPROPion XL (WELLBUTRIN XL) 300 mg 24 hr tablet Take 1 tablet (300 mg total) by mouth daily 01/02/2018 Active SYNTHROID 125 mcg tablet Take 1 tablet (125 mcg total) by mouth daily 11/17/2017 Active MAGNESIUM ORAL Take by mouth. Active ferrous sulfate (IRON ORAL) Take by mouth Active ergocalciferol (VITAMIN D) 50,000 unit capsule 01/11/2018 Active FLUoxetine (PROzac) 20 mg capsule 12/18/2019 Active spironolactone (ALDACTONE) 50 mg tablet Take 1 tablet (50 mg total) by mouth daily Active Accrufer 30 mg capsule TAKE 1 CAPSULE BY MOUTH TWICE A DAY 1 HOUR BEFORE OR 2 HOURS AFTER MEALS. 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 Gender Identity Female 12/22/2019 6:41 AM CDT [...] CDT Inhaled Oxygen Concentration - - Weight 68 kg (150 lb) 10/18/2024 1:03 PM CDT Height 175.3 cm (5' 9) 10/18/2024 1:03 PM CDT Body Mass Index 22.15 10/18/2024 1:03 PM CDT Plan of Treatment Health Maintenance Due Date Last Done Comments Cervical Cancer Screening 1981 Depression Screening 1981 Hepatitis C Screening 1981 DTaP/Tdap/Td Vaccine (1 - Tdap) 01/02/1992 Varicella Vaccines (1 of 2 - 13+ 2-dose series) 1994 Hepatitis B Screening 1999 Regular Well Visit/Exam 18-64 1999 HPV Vaccines (1 - 3-dose SCDM series) 01/02/2008 Breast Cancer Screening-Mammogram 03/19/2024 03/19/2023, 03/19/2023, 01/17/2022, Additional history exists Covid-19 Vaccine ( season) 2025 05/10/2021, 09/13/2020, 08/16/2020 Influenza Vaccine (#1) 2025 , 04/19/2020, 05/10/2019, Additional history exists Pneumococcal vaccine <65 Aged Out No longer eligible based on patient's age to complete this topic Insurance [facility] [id number] [facility] [id number] [facility] [id number] Care Teams Bee Rancher Relationship Specialty Start Date End Date Nedra Browning PA [address] [place] [address] PCP - General Physician Diving Coach 06/20/24 Nedra Browning PA Physician Diving Coach 12/22/19
== END 2025-04-14 08:40 | disposition home or self-care (01) ==
LOC: ANHIMG 08:46
PROVIDERS: PCP Physician Assistant; Visit Provider Physician Assistant
DX: K21.9 Gastro-esophageal reflux disease without esophagitis (principal)
CPT/HCPCS: 74246

== ENCOUNTER 2025-05-01 08:37 | Outpatient (CLI) | payer OTHER, SELFPAY ==
--- OUTSIDE RECORDS SUMMARY | 2018-05-03 | XMS_ITS | Encounter Summary ---
Author Organization [facility] Healthcare Address [address] [place] [address] Care Team Providers Care Fur Clipper Name Role Phone Nedra Browning Primary Care Pr ovider Montrell Shaw MD Unavailable [phone] Reason for Visit * Diagnostic Imaging (Routine) - Closed Specialty Diagnoses / Procedures Referred By Sterling mijares Referred To Contact Procedures Breast Imaging Diagnostic Outside Reference Lucien Odell NP Phone: tel: fax: Referral ID Status Reason Start Date Expiration Date Visits Re quested Visits Authorized [id number] Closed 05/21/2022 06/20/2023 1 1 Encounter Details Date Type Department Care Team (Late st Contact Info) Description 05/03/2018 Hospital Encounter [facility]) [address] [place] [id number] Social History Tobacco Use Types Packs/Day [...] drinks on one occasion? Monthly 09/20/2024 Comments No Sex and Gender Information Value Date Recorded Sex Assigned at Not on file Legal Sex Female 3:20 AM SUPERINTENDENT MECHANICAL Gender Identity Female 12/22/2019 6:41 AM CDT Sexual Orientation Not on file documented as of this encounter Functional Status * BP Location Answer Date of Assessment Author Left arm 04/19/2025 8:52 AM SUPERINTENDENT MECHANICAL Laura Seals CMA * AUDIT-C Score Answer Date of Assessment Author 3 09/20/2024 10:06 AM Delmi Davis CMA * Alcohol Use Question Answer Date of Assessment Author Q1: How often do you have a drink containing alcohol? Monthly or less 09/20/2024 10:06 AM Sukh Stuart CMA Q2: How many drinks containing alcohol do you have on a typical day when you are drinking? 1 or 2 09/20/2024 10:06 AM Sagar Stuart CMA Q3: How often do you have six or more drinks on one occasion? Monthly 09/20/2024 10:06 AM Sukh Stuart CMA * BP Location Answer Date of Assessment Author Left arm 04/19/2025 8:52 AM SUPERINTENDENT MECHANICAL Laura Seals CMA documented as of this encounter Plan of Treatment Not on file documented as of this encounter Procedures Procedure Name Priority Date/Time Associated Diagnosis Comments BREAST IMAGING MG DIAGNOSTIC OUTSIDE REFERENCE Routine 05/03/2018 12:00 AM SUPERINTENDENT MECHANICAL documented in this encounter Results * Breast Imaging Diagnostic Outside Reference (05/03/2018 12:00 AM SUPERINTENDENT MECHANICAL) Impressions [facility] - 05/21/2022 11:43 AM SUPERINTENDENT MECHANICAL These images are for Reference purposes only and have not been reviewed by [facility]. There will be no report generated by a [facility] Radiologist. Narrative [facility] - 05/21/2022 11:43 AM SUPERINTENDENT MECHANICAL EXAMINATION: Images For Reference Purposes Only us [...] documented as of this encounter Care Teams Fur Clipper Relationship Specialty Start Date End Date Nedra Browning PA PCP - General Physician Data Processing Systems Project Planner 01/22/18 12/21/19 Montrell Shaw MD [address] [place] [id number] 01/22/18 12/21/19 documented as of this encounter
--- OUTSIDE RECORDS SUMMARY | 2018-05-03 00:05 | XMS_ITS | Encounter Summary ---
Author Organization [facility] Healthcare Address [address] [place] [address] Care Team Providers Care Residential Real Estate Appraiser Name Role Phone Nedra Browning Primary Care Pr ovider Montrell Shaw MD Unavailable [phone] Reason for Visit * Diagnostic Imaging (Routine) - Closed Specialty Diagnoses / Procedures Referred By Sterling mijares Referred To Contact Procedures Breast Imaging US Outside Reference Lucien Odell NP Phone: tel: fax: Referral ID Status Reason Start Date Expiration Date Visits Re quested Visits Authorized [id number] Closed 05/21/2022 06/20/2023 1 1 Encounter Details Date Type Department Care Team (Late st Contact Info) Description 05/03/2018 12:05 AM SPECIAL EDUCATION PARAEDUCATOR Hospital Encounter [facility] [address] [place] [id number] Social History Tobacco Use Types Packs/Day [...] on file Legal Sex Female 3:20 AM SPECIAL EDUCATION PARAEDUCATOR Gender Identity Female 12/22/2019 6:41 AM CDT Sexual Orientation Not on file documented as of this encounter Functional Status * BP Location Answer Date of Assessment Author Left arm 04/19/2025 8:52 AM SPECIAL EDUCATION PARAEDUCATOR Laura Seals CMA * AUDIT-C Score Answer [...] Assessment Author Left arm 04/19/2025 8:52 AM SPECIAL EDUCATION PARAEDUCATOR Laura Seals CMA documented as of this encounter Plan of Treatment Not on file documented as of this encounter Procedures Procedure Name Priority Date/Time Associated Diagnosis Comments BREAST IMAGING US OUTSIDE REFERENCE Routine 05/03/2018 12:05 AM SPECIAL EDUCATION PARAEDUCATOR documented in this encounter Results * Breast Imaging US Outside Reference (05/03/2018 12:05 AM SPECIAL EDUCATION PARAEDUCATOR) Impressions [facility] - 05/21/2022 11:43 AM SPECIAL EDUCATION PARAEDUCATOR These images are for Reference purposes only and have not been reviewed by [facility]. There will be no report generated by a [facility] Radiologist. Narrative [facility] - 05/21/2022 11:43 AM SPECIAL EDUCATION PARAEDUCATOR EXAMINATION: Images For Reference Purposes Only us [...] documented as of this encounter Care Teams Residential Real Estate Appraiser Relationship Specialty Start Date End Date Nedra Browning PA PCP - General Physician Entry Level Java Developer 01/22/18 12/21/19 Montrell Shaw MD [address] [place] [id number] 01/22/18 12/21/19 documented as of this encounter
--- NOTE | 2025-05-01 | ECHO_ITS ---
Patient Info Name: Vita Latif Age: 45 years : 1980 Gender: Female Ht: 69 in Wt: 150 lbs BSA: 1.82 m2 HR: 94 bpm BP: 95 / 71 mmHg Heart Rhythm: Sinus Rhythm Technical Quality: Fair Exam Date: 05/01/2025 9:01 AM Patient Status: O Admit Date: 05/01/2025 Exam Type: CA echo doppler color flow Complete two-dimensional, color flow and Doppler transthoracic echocardiogram is performed. Figure Clerk: Yi Bates Attending Provider: Nedra Browning Summary 1. Complete two-dimensional, color flow and Doppler transthoracic echocardiogram is performed. 2. Left ventricular chamber dimension is normal. 3. Left ventricular systolic function is normal, estimated at 60-65. 4. The left ventricular diastolic function is normal. 5. E/e' 6 is not elevated. 6. There is no tricuspid valve regurgitation. 7. No pulmonary hypertension, estimated pulmonary arterial systolic pressure is 23 mmHg. 8. There is trace pulmonic regurgitation. Left Ventricle E/e' 6 is not elevated. Left ventricular chamber dimension is normal. Left ventricular systolic function is normal, estimated at 60-65. The left ventricular diastolic function is normal. Right Ventricle Right ventricular chamber dimension is normal. Right ventricular systolic function is normal and with normal TAPSE 2.4 cm. Left Atria Left atrial chamber dimension is normal. Right Atria Right atrial chamber dimension is normal. Aortic Valve The aortic valve is trileaflet. There is no aortic valve stenosis. There is no aortic valve regurgitation. Pulmonic Valve There is trace pulmonic regurgitation. Mitral Valve There is no mitral valve stenosis. There is no mitral valve regurgitation. Tricuspid Valve There is no tricuspid valve regurgitation. No pulmonary hypertension, estimated pulmonary arterial systolic pressure is 23 mmHg. Pericardium/Pleural There is no pericardial effusion. Inferior Vena Cava Normal inferior vena cava with >50% collapse upon inspiration consistent with normal right atrial pressure, 5 mmHg. Aorta The aortic root size at the sinus of Valsalva is normal. Left Ventricular Outflow Tract Name Value Normal LVOT 2D LVOT Diameter 2.0 cm LVOT Doppler LVOT Peak Velocity 87 cm/s LVOT Peak Gradient 3 mmHg LVOT Mean Gradient 2 mmHg LVOT VTI 16 cm LVOT VTI/AV VTI Ratio 0.7 LVOT Stroke Volume 50 ml LVOT CO 4.3 l/min LVOT CI 2.3 l/min/m2 Pulmonic Valve Name Value Normal RVOT Doppler RVOT Peak Velocity 73 cm/s RVOT Peak Gradient 2 mmHg PV Doppler PV Peak Velocity 77 cm/s PV Peak Gradient 2 mmHg Mitral Valve Name Value Normal MV Diastolic Function MV E Peak Velocity 82 cm/s MV A Peak Velocity 1 cm/s MV E/A 82.6 MV Decel Time (PW) 70 ms MV Annular TDI MV E/e' (Septal) 6.4 MV E/e' (Lateral) 6.0 MV E/e' (Average) 6.2 Tricuspid Valve Name Value Normal TV Regurgitation Doppler TR Peak Velocity 211 cm/s TR Peak Gradient 17 mmHg Estimated PAP/RSVP RA Pressure 5 mmHg <=5 PA Systolic Pressure 23 mmHg <36 RV Systolic Pressure 23 mmHg <36 TV Annular TDI TV Lateral Elma s' Velocity 16.9 cm/s >=9.5 Aorta Name Value Normal Ascending Aorta Ao Root Diameter (MM) 2.3 cm Ao Root Diam Index (MM) 1.3 cm/m2 Aortic Valve Name Value Normal AV Doppler AV Peak Velocity 130 cm/s AV Peak Gradient 7 mmHg AV Mean Gradient 3 mmHg AV VTI 23 cm AV Area (Cont Eq VTI) 2.2 cm2 >=3.0 AV Area (Cont Eq Costa) 2.1 cm2 AV DI (Costa) 0.67 AV Regurgitation 2D LVOT Area 3.1 cm2 Ventricles Name Value Normal LV Dimensions 2D/MM IVS Diastolic Thickness (2D) 0.9 cm 0.6-1.0 LVID Diastole (2D) 4.0 cm 3.8-5.2 LVIW Diastolic Thickness (2D) 0.8 cm 0.6-0.9 LVID Systole (2D) 2.8 cm 2.2-3.5 LVOT Diameter 2.0 cm LV Mass (2D Cubed) 100.22 g 67.00-162.00 LV Mass Index (2D Cubed) 55 g/m2 43-95 Relative Wall Thickness (2D) 0.38 <=0.42 LV Fractional Shortening/Ejection Fraction 2D/MM LV Fractional Shortening (2D) 31 % 27-45 LV EF (2D Teichholz) 60 % LV Diastolic Volume (4C MOD) 44 ml LV EF (4C MOD) 69 % LV Diastolic Volume (2C MOD) 40 ml LV EF (2C MOD) 60 % LV Diastolic Volume (BP MOD) 43 ml 46-106 LV Diastolic Volume Index (BP MOD) 24 ml/m2 29-61 LV Systolic Volume (BP MOD) 15 ml 14-42 LV Systolic Volume Index (BP MOD) 8 ml/m2 8-24 LV EF (BP MOD) 66 % 54-74 LV Diastolic Length (4C) 7.4 cm LV Systolic Length (4C) 6.1 cm LV Stroke Volume (4C MOD) 30 ml Atria Name Value Normal LA Dimensions LA Dimension (MM) 2.7 cm 2.7-3.8 LA Volume (4C A-L) 22 ml LA Volume (BP A-L) 24 ml RA Dimensions RA Area (4C) 9.7 cm2 <=18.0 Report Signatures
--- OUTSIDE RECORDS SUMMARY | 2025-05-01 08:52 | XMS_ITS | Clinical Summary ---
Author Organization [facility] Address [address] [place] [address] Care Team Providers Care Dairy Farmworker Name Role Phone Nedra Browning Unavailable Nedra [...] 1 capsule (30 mg total) 09/14/2024 Active famotidine (PEPCID) 40 mg tablet Take 1 tablet (40 mg total) by mouth 2 (two) times a day 04/06/2025 Active FLUoxetine (PROzac) 40 mg capsule Take 1 capsule (40 mg total) by mouth daily 01/19/2025 Active Active Problems Problem Noted Date Diagnosed [...] Encounters Date Type Department Care Team Description 04/20/2025 Results Follow-Up [facility] Medicine Surgery [address] [facility] [address] [place] [phone] Noemy Garcia NP Screening Mammogram Bilateral w Rio w Implants 04/19/2025 9:15 AM EDI PROGRAMMER ANALYST - 04/19/2025 11:59 PM EDI PROGRAMMER ANALYST Hospital Encounter [facility] - Breast Imaging [address] [facility] [address] [place] [address] At high risk for breast cancer; Family history of breast cancer Discharge Disposition: Discharge to home or self care 04/19/2025 8:45 AM EDI PROGRAMMER ANALYST Office Visit [facility] Medicine Surgery [address] [facility] [address] [place] [address] Noemy Garcia NP Heterogeneously dense tissue of both breasts on mammography (Primary Dx); At increased risk of breast cancer; Family history of breast cancer; Presence of silicone breast implant from Last 3 Months Immunizations Immunization Administration Dates Next Due Influenza, Quadrivalent, Spl it, Intramuscular 02/28/2017 Influenza, Quadrivalent, Spl it, Preservative Free, Intramuscular 04/19/2020,05/10/2019 Influenza, Trivalent, Preser vative Free, Intramuscular 03/03/2017 Influenza, Unspecified 03/23/2023 Moderna SARS-CoV-2 Monovalen t Vaccination (12+ YRS) 05/10/2021 Moderna Sars-cov-2 Monovalen t Booster Vaccination (12+ YRS) 05/10/2021,09/13/2020,08/16/2020 Surgical History Surgery Date Site/Laterality Comments THYROIDECTOMY 06/08/2010 - 06/07/2011 BREAST SURGERY 06/08/2013 - 06/07/2014 Bilateral agugmentation AUGMENTATION MAMMAPLASTY 01/06/2025 - 02/05/2025 Bilateral Silicone implant replacement and lift BREAST BIOPSY 06/08/2018 - 06/07/2019 Left Medical History Medical History Date Comments Hx Other Medical preclampsia Disorder of thyroid Thyroid dise ase Hx Other Medical s/p thyroidecto my. 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 PROGRAMMER ANALYST Gender Identity Female 12/22/2019 6:41 AM CDT Sexual Orientation Not on file Obstetrics History Para Term AB IAB SAB Ectopic Multiple Livin g Live Births 3 3 Date Outcome GA Total Labor Labor/2nd/3rd Weight Sex Type Anes PTL Sharmila A1 A5 Name Clin Last Filed Vital Signs Vital Sign Reading Time Taken Comments Blood Pressure 129/70 04/19/2025 8:52 AM EDI PROGRAMMER ANALYST Pulse 100 04/19/2025 8:52 AM EDI PROGRAMMER ANALYST Temperature 36.4 C (97.5 F) 04/19/2025 8:52 AM EDI PROGRAMMER ANALYST Respiratory Rate 18 04/19/2025 8:52 AM EDI PROGRAMMER ANALYST Oxygen Saturation 99% 04/19/2025 8:52 AM EDI PROGRAMMER ANALYST Inhaled Oxygen Concentration - - Weight 68.2 kg (150 lb 6.4 oz) 04/19/2025 8:52 A M EDI PROGRAMMER ANALYST Height 175.3 cm (5' 9.02) 04/19/2025 8:52 AM CS T Body Mass Index 22.2 04/19/2025 8:52 AM EDI PROGRAMMER ANALYST Plan of Treatment Health Maintenance Due Date Last Done Comments Cervical Cancer Screening 1981 Depression Screening 1981 Hepatitis C Screening 1981 DTaP/Tdap/Td Vaccine (1 - Tdap) 01/02/1992 Varicella Vaccines (1 of 2 - 13+ 2-dose series) 1994 Hepatitis B Screening 1999 Regular Well Visit/Exam 18-64 1999 HPV Vaccines (1 - 3-dose SCDM series) 01/02/2008 Covid-19 Vaccine ( season) 2025 05/10/2021, 05/10/2021, 09/13/2020, Additional history exists Influenza Vaccine (#1) 2025 , 04/19/2020, 05/10/2019, Additional history exists Breast Cancer Screening-Mammogram 04/19/2026 04/19/2025, 03/19/2023, 03/19/2023, Additional history exists Pneumococcal vaccine <65 Aged Out No longer eligible based on patient's age to complete this topic Procedures Procedure Name Priority Date/Time Associated Diagnosis Comments SCREENING MAMMOGRAM BILATERAL W RIO W IMPLANTS Schedule Routine, Read Routine (OP Routine) 04/19/2025 9:53 AM EDI PROGRAMMER ANALYST At high risk for breast cancer Family history of breast cancer from Last 3 Months Results * Screening Mammogram Bilateral w Rio w Implants (04/19/2025 9:53 AM EDI PROGRAMMER ANALYST) Anatomical Region Laterality Modality Breast Bilateral Mammography Impressions 04/20/2025 10:01 AM EDI PROGRAMMER ANALYST Bilateral No evidence of malignancy in either breast. OVERALL BI-RADS FINAL ASSESSMENT: 2 - Benign RECOMMENDATION: Recommend bilateral annual screening mammography. Consider supplemental screening with breast MRI every 1-2 years given extremely dense breast tissue. If breast MRI cannot be performed, consider contrast-enhanced mammography as an alternative. Narrative 04/20/2025 10:01 AM EDI PROGRAMMER ANALYST EXAMINATION: Screening Mammogram Bilateral w Rio w Implants: 04/19/2025 COMPARISON: Relevant prior studies available at the time of interpretation were reviewed, including the most recent mammogram on: 09/20/2024. TECHNIQUE: Mammography was performed with 2D and 3D digital breast tomosynthesis (DBT) images. CAD was utilized. BREAST PARENCHYMAL COMPOSITION: The breasts are extremely dense, which lowers the sensitivity of mammography. FINDINGS: Bilateral 1) Post-Surgical Finding: There are silicone implants in both breasts This finding is benign. There is no suspicious mass, calcification, or architectural distortion in either breast. Melly Santamaria NP IMG MAMMO PROCEDURES Final Result from Last 3 Months Insurance Sell My [employer] NOW [facility] [employer] [id number] [facility] [place] [facility] [id number] [facility] [id number] Care Teams Dairy Farmworker Relationship Specialty Start Date End Date Nedra Browning PA [address] [place] [address] PCP - General Physician Truck Driver Supervisor 06/20/24 Nedra Browning PA Physician Truck Driver Supervisor 12/22/19
--- OUTSIDE RECORDS SUMMARY | 2025-05-01 08:53 | XMS_ITS | Encounter Summary ---
Author Organization [facility] Address [address] [place] [address] Phone Care Team Providers Care Rivet Tosser Name Role Phone Nedra Browning Unavailable Nedra Browning Primary Care Pr ovider Encounter Details Date Type Department Care Team (Late st Contact Info) Description 04/20/2025 Results Follow-Up [facility] Medicine Surgery [address] [facility] Floor [address] [place] [address] Noemy Garcia NP [address] 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
--- OUTSIDE RECORDS SUMMARY | 2025-05-01 08:53 | XMS_ITS | Clinical Summary ---
Author Organization [facility] [employer] Address [address] [facility] [place] [address] Care Team Providers Care Agency Owner Name Role Phone Yamel García MD Unavailable [phone] Nedra Agosto Primary Care Pr ovider Source Comments [facility] [employer],non-owned Affiliates and Associated Physician Practices is amultiple site organization consisting of ambulatory clinics and hospital sitesin [place], [place], [place] and [place]. This disclosure is being madepursuant to the Care Everywhere program and may not contain all information available regarding this patient. Last updated 18.[facility] [employer] Allergies No known active allergies Medications * Be aware that medications may not be up to date on this document. Alwaysverify current medications with the patient. 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 Gender Identity Not on file Sexual Orientation [...] of 3 - 19+ 3-dose series) 01/02/2000 Cervical Cancer Screening 2002 PAP SMEAR 2002 HPV VACCINE (1 - 3-dose SCDM series) 01/02/2008 PAP with HPV 2011 DEPRESSION SCREENING 06/08/2024 COVID-19 VACCINE (2 - [...] this topic Medical Devices Implanted Type Area Customer Support Advisor Device Identifier Shelf Expiration Date Model / Serial / Lot Estill Sut Arthx Fbrtak Strl Lf Disp Implanted:Qty: 2 on 08/30/2020 by Yamel García MD at [facility] Left: Shoulder [employer] 07/08/2025 [id number]-[id number] / / [id number] Fibertak Biceps Implant Set Implanted:Qty: 1 on 08/30/2020 by Yamel García MD at [facility] Left: Shoulder 07/08/2025 AR-[id number] / / [id number] Explanted Type Area Customer Support Advisor Device Identifier Shelf Expiration Date Model / Serial / Lot Kit Arthsc Fx Crv Spr Disp Explanted:Qty: 1 on 08/30/2020 at [facility] Left: Shoulder [employer] [id number] / / Insurance [employer] HE[employer] Care Teams Agency Owner Relationship Specialty Start Date End Date Nedra Agosto PA [address] [place] [id number] PCP - General 12/17/21 [place]ía [place] [id number] [address] Orthopedic Surgery 08/14/20
--- OUTSIDE RECORDS SUMMARY | 2025-05-01 08:53 | XMS_ITS | Patient Health Record ---
Author Organization [facility] [employer] Address [address] [facility] [address] [place] [address] Care Team Providers Care Answering Service Telephone Operator Name Role Phone Nedra Lal Primary Care Provider Sofia Vegas Unavailable [phone] Justus Zhou Unavailable [phone] James South Unavailable [phone] Allergies No Known Allergies Results Component Value [...] x NEG 0 - 300 ng/ml UDT (12 Panel) Reviewed date:04/25/2025 09:07:10 AM Interpretation: Performing Lab: Notes/Report: Amphetamine (AMP) N Barbiturates (BAR) N Benzodiazepine (BZO) N Cocaine (KAI) N Ecstasy (MDMA) N Methamphetamine (MET) N Morphine (MOP) N Methadone (MTD) N Oxycodone (OXY) N Phencyclidine (PCP) N Tricyclic Antidepressants (TCA) N Marijuana (THC) N UDT Reviewed date:01/19/2025 02:30:47 PM Interpretation: Performing [...] Duration) Notes Start Date End Date Status Vitamin D (Ergocalciferol) 1.25 MG (30106 UT) Capsule 1 capsule Oral once weekly; Duration: 90 days Active Synthroid 125 MCG Tablet TAKE 1 TABLET B Y MOUTH EVERY MORNING Oral; Duration: 30 Days Active FLUoxetine HCl 20 MG Capsule 1 capsule Orally Once a day Active Wellbutrin XL 300 MG Tablet Extended Release 24 Hour 1 tablet in the morning Oral Once a day; Duration: 90 days 04/25/2025 Active FLUoxetine HCl 20 MG Capsule 1 capsule Oral Once a day; Duration: 90 days total daily dose 60mg 04/25/2025 Active FLUoxetine HCl 40 MG Capsule 1 capsule Oral Once a day; Duration: 90 days total daily dose 60mg 04/25/2025 Active Methylphenidate HCl ER 27 MG Tablet Extended Release 1 tablet every morning Orally Once a day; Duration: 30 days 04/25/2025 Active Progesterone 100 MG Capsule TAKE 1 TO 2 CAPSULES AT BEDTIME Oral; Duration: 90 Days Active Minoxidil 2.5 MG Tablet Oral; Duration: 90 Days Active Spironolactone 50 MG Tablet TAKE 1 TABLE T EVERY OTHER DAY, ALTERNATING WITH 25MG TABLET Oral; Duration: 90 Days Active Mounjaro 15 MG/0.5ML Solution Auto-injector INJECT 15 MG SUBCUTANEOUSLY WEEKLY Subcutaneous; Duration: 28 Days Active Tretinoin 0.05 % Cream APPLY TO AREAS OF ACNE NIGHTLY. MOISTURE AFTER. External; Duration: 90 Days Active Social History Tobacco [...] Notes Problem Screening for cardiovascular system disease (260679907) Encounter for screening for cardiovascular disorders (Z13.6) Active confirmed Problem Depression Screening (014584566) Encounter for screening for depression (Z13.31) Active confirmed Problem Mild recurrent major depression (52887300) MDD (major depressive disorder), recurrent episode, mild (F33.0) Active confirmed Problem Attention deficit hyperactivity disorder (254949080) Attention deficit hyperactivity disorder (ADHD), combined type (F90.2) Active confirmed Problem Unable to concentrate (finding) (60700789) Difficulty concentrating (R41.840) Active confirmed Vital Signs Heart Rate 91 /min 04/25/2025 Height-cm 175.31 cm 04/25/2025 Blood pressure diastolic 77 mm Hg 04/25/2025 Weight-kg 68.04 kg 04/25/2025 Height 69.02 in 04/25/2025 Blood pressure systolic 117 mm Hg 04/25/2025 Weight 150 lbs 04/25/2025 BMI 22.14 kg/m2 04/25/2025 Procedures Procedure Date Ordered Date Performed Result Body Sit e ADHD Testing 09/05/2024 09/06/2024 N/A Encounters Encounter Location Date Provider Diagnosis [facility] [employer] [address] [address] 09/05/2024 James South Encounter for screen ing for depression Z13.31 ; Difficulty concentrating R41.840 and MDD (major depressive disorder), recurrent episode, mild F33.0 [facility] [employer] [address] [address] 09/06/2024 Justus Zhou Lack of concentratio n R41.840 [facility] [employer] [facility] [address] [place] [address] [address] 09/13/2024 James South Attention deficit hyperactivity disorder (ADHD), combined type F90.2 ; MDD (major depressive disorder), recurrent episode, mild F33.0 ; Encounter for screening for depression Z13.31 and Encounter for screening for cardiovascular disorders Z13.6 [facility] [employer] [address] [address] 10/10/2024 Sofia Shelton MDD (major depressiv e disorder), recurrent episode, mild F33.0 ; Attention deficit hyperactivity disorder (ADHD), combined type F90.2 ; Encounter for screening for depression Z13.31 ; Encounter for screening for cardiovascular disorders Z13.6 and Negative depression screening Z13.31 [facility] [employer] [address] [address] 11/10/2024 Sofia Shelton Encounter for screen ing for cardiovascular disorders Z13.6 ; MDD (major depressive disorder), recurrent episode, mild F33.0 ; Attention deficit hyperactivity disorder (ADHD), combined type F90.2 ; Encounter for screening for depression Z13.31 and Negative depression screening Z13.31 [facility] [employer] [address] [address] 01/19/2025 Sofia Kurilla MDD (major depressiv e disorder), recurrent episode, mild F33.0 and Attention deficit hyperactivity disorder (ADHD), combined type F90.[address] [facility] [address] [place] [address] 03/29/2025 Sofia Kurilla MDD (major depressiv e disorder), recurrent episode, mild F33.0 and Attention deficit hyperactivity disorder (ADHD), combined type F90.[address] [facility] [address] [place] [address] 04/25/2025 Sofia Kurilla MDD (major depressiv e disorder), recurrent episode, mild F33.0 and Attention deficit hyperactivity disorder (ADHD), combined type F90.[address] [facility] [address] [facility] [address] [place] [address] 12/01/2024 Sofia Kurilla [place] [address] [facility] [address] [place] [address] 11/05/2024 Sofia Kurilla MDD (major depressiv e disorder), recurrent episode, mild F33.0 [place] [address] [place] [address] 11/11/2024 Sofia Kurilla [facility] [address] [facility] [address] [place] [address] 12/09/2024 Sofia Kurilla [place] [address] [place] [address] 12/09/2024 Sofia Kurilla Attention deficit hyperactivity disorder (ADHD), combined type F90.2 [place] [address] [facility] [address] [place] [address] 12/10/2024 Sofia Kurilla [place] [address] [place] [address] 01/20/2025 Sofia Kurilla Assessments Encounter Date Diagnosis (ICD Code) Assessment Notes Treatment Notes Treatment Clinical Notes Section Notes 09/05/2024 Encounter for screening for depression (ICD-10 - Z13.31) 09/05/2024 Difficulty concentrating (ICD-10 - R41.840) 09/06/2024 Lack of concentration (ICD-10 - R41.840) ADHD Assessment Analysis Client: Female, Age 35 to 44 Assessment Date: September 06, 2024 Tool Used: [facility] Protocol with ASRS Questionnaire 1. ASRS [...] children and young adults, and serotonin syndrome. 04/25/2025 MDD (major depressive disorder), recurrent episode, mild (ICD-10 - F33.0) SSRI/SNRI side effects discussed including but not limited to, gastric upset, nausea, vomiting, diarrhea and/or constipation, weight changes, sexual side effects including loss of libido, increased suicidal thoughts/behaviors in children and young adults, and serotonin syndrome. 04/25/2025 Attention deficit hyperactivity disorder (ADHD), combined type [...] policy, only prescribed to local pharmacy in [place], no early refills on control substance. 03/29/2025 Attention deficit hyperactivity disorder (ADHD), combined [...] policy, only prescribed to local pharmacy in [place], no early refills on control substance. 01/19/2025 [...] up with Sofia - Patient to download Peak jessica from website for direct messaging Anxiety [...] therapeutic effects of psychotropic medications. -[facility]. 03/29/2025 Other Discontinue Vyvanse Start Concerta [...] therapeutic effects of psychotropic medications. -[facility]. 04/25/2025 Other Decrease Concerta to 27mg daily due to side effects -could consider decrease in Wellbutrin if not effective Patient educated on all medications including potential [...] therapeutic effects of psychotropic medications. -Crisis prevention [facility] 988. Plan Of Treatment Next Appt Details Provider Name:Erica Morejon Patricia morejon, 06/27/2025 08:30:00 AM, [address], [facility] [address], [place], [address], Insurance Providers Payer Name Payer Address Payer Phone Subscriber Number Group Number Insured Name Patient Relationship to Insured Coverage Start Date Coverage End Date [employer] [address] [place] [address] [phone] [id number] Latif Self - patient is the insured Medical (General) History Medical History History ICD Code Problems: Generalized anxiety disorder Recurrent major depressive episodes, mil d Graves' disease Surgical History Surgery Date(Month/Year) section total thyroidectomy breast augmentation
--- OUTSIDE RECORDS SUMMARY | 2025-05-01 08:53 | XMS_ITS | Clinical Summary ---
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 DICTATION LOCATION: [facility] 03/19/2023 2:38 PM CDT BILATERAL SCREENING DIGITAL [...] in one year. DICTATION LOCATION: [facility] MAMMO ORDERABLES Final Re sult from Last 3 Months or Most Recently Relevant to Health Maintenance Insurance BENEFIT PLANS BENEFIT PLANS
== END 2025-05-01 08:38 | disposition home or self-care (01) ==
LOC: ANHCARD 08:38
PROVIDERS: PCP Physician Assistant; Visit Provider Physician Assistant
DX: R06.00 Dyspnea, unspecified (principal)
CPT/HCPCS: 93306